=== PATIENT | female | born 1950 | race Caucasian/White ===

== ENCOUNTER 2016-10-26 00:19 | Emergency (ER) | payer OTHER ==
[~2016-10-26] VITALS: Ht 160 cm; Wt 99.8 kg
[~2016-10-26 00:19] MED LIST: ALPRAZOLAM0.5 MG PO; AMOXIL500 MG PO; ATORVASTATIN CA40 M1 PO; BABY ASPIRIN CH81 MG PO; BACTRIM DS 8001 TAB PO; DIOVAN 160 MG160 MG PO; FOLIC ACID1 M1 PO; GLUCOPHAGE1000 M1 PO; LEVOTHYROXIN0.075 MG PO; METOPROLOL SUCC50 M2 PO
--- NOTE | 2016-10-26 00:29 | ED CARDIAC/CP/PALPITATIONS ---
History of Present Illness General Chief Complaint: General Adult Stated Complaint: " BURNING IN CHEST TOWARDS BACK, HX ACID REFLUX" Source: patient, old records Exam Limitations: no limitations Vital Signs & Intake/Output Vital Signs & Intake/Output Vital Signs Date Time Temp Pulse Resp B/P Pulse O2 O2 Flow FiO2 Ox Delivery Rate 10/26 0057 97 Room Air Room Air 10/26 0031 97.0 92 20 147/85 95 Room Air Room Air Allergies Coded Allergies: Penicillins (Mild, RASH 08/14/16) ciprofloxacin (From CIPRO) (Mild, RASH 08/14/16) sulfamethoxazole (From BACTRIM) (Mild, NAUSEA, METAL TASTE 10/26/16) trimethoprim (From BACTRIM) (Mild, NAUSEA, METAL TASTE 10/26/16) Reconcile Medications Alprazolam 0.5 MG TAB 1 TAB PO BID ANXIETY (Reported) Amoxicillin (Amoxil) 500 MG CAP 1 CAP PO TID INFECTION Aspirin (Children's Aspirin) 81 MG TAB 1 TAB PO DAILY HEART HEALTH (Reported) Atorvastatin Calcium 40 MG TABLET 1 TAB PO DAILY HEART HEALTH (Reported) Folic Acid 1 MG TABLET 1 TAB PO DAILY HEALTH (Reported) Levothyroxine Sodium 0.075 MG TAB 1 TAB PO DAILY THYROID (Reported) Metformin HCl (Glucophage) 1,000 MG TABLET 1 TAB PO BID DM (Reported) Metoprolol Succinate 50 MG TAB.ER.24H 1 TAB PO DAILY HEART HEALTH (Reported) Sulfamethoxazole/Trimethopri (Bactrim Ds 800 MG-160 MG) 1 TAB TAB 1 TAB PO BID INFECTION Valsartan (Diovan) 160 MG TAB 2 TAB PO DAILY HTN (Reported) Triage Nurses Notes Reviewed? yes HPI: Patient presents with a burning sensation in her epigastric area that radiates to her chest and her back. The symptoms started a few weeks ago have been worsening. The burning sensation is worse when she is laying down. There are no mitigating factors. Patient denies any shortness of breath. Patient states that her anxiety is also getting worse. Patient denies any suicidal or homicidal ideations. The burning sensation is intermittent but last a few hours when she gets it. At its worse it is 6 out of 10. Of note patient states that the symptoms really started after taking a course of Bactrim. Past History Travel History Traveled to [place] past 21 day No Medical History Any Pertinent Medical History? 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 No Review of Systems Review of Systems Constitutional: Reports: no symptoms. EENTM: Reports: no symptoms. Respiratory: Reports: see HPI, cough. Cardiovascular: Reports: see HPI, chest pain. GI: Reports: see HPI, abdominal pain. Genitourinary: Reports: no symptoms. Musculoskeletal: Reports: no symptoms. Skin: Reports: no symptoms. Neurological/Psychological: Reports: no symptoms. Hematologic/Endocrine: Reports: no symptoms. Immunologic/Allergic: Reports: no symptoms. All Other Systems: Reviewed and Negative Physical Exam Physical Exam General Appearance: well developed/nourished, alert, awake, anxious, mild distress Head: atraumatic, normal appearance Eyes: Bilateral: PERRL, EOMI. Ears, Nose, Throat: normal pharynx, normal ENT inspection, hearing grossly normal Neck: normal inspection, supple, full range of motion, NO JVD Respiratory: normal breath sounds, chest non-tender, no respiratory distress, lungs clear Cardiovascular: normal peripheral pulses, REGULARLY IRREGULAR Gastrointestinal: normal bowel sounds, soft, non-tender, no organomegaly Back: normal inspection, normal range of motion Extremities: normal inspection, normal capillary refill, normal range of motion, no edema Neurologic/Psych: no motor/sensory deficits, awake, alert, oriented x 3, normal gait, normal mood/affect Skin: intact, normal color, warm/dry Lymphatic: no anterior cervical gonsalo Core Measures ACS in differential dx? Yes ASA ordered for poss ACS? No-ACS ruled out Severe Sepsis Present: No Septic Shock Present: No Progress Differential Diagnosis: AMI, atrial fibrillation, cholecystitis, myocarditis, pericarditis, pulmonary embolism, PUD/GERD Plan of Care: Orders Procedure Date/time Status Add-on Test (ER Only) 10/26 0609 Active TROPONIN LEVEL 10/26 0447 Complete EKG 10/26 0447 Active URINALYSIS 10/26 0104 Complete GLYCOSYLATED HGB 10/26 0052 Active TROPONIN LEVEL 10/26 0043 Complete LIPASE 10/26 0043 Complete COMPREHENSIVE METABOLIC PANEL 10/26 0043 Complete CBC WITHOUT DIFFERENTIAL 10/26 42 Complete AMYLASE 10/26 42 Complete EKG 10/26 38 Active Laboratory Tests 10/26/16 0502: Troponin I < 0.01 10/26/16 0125: Urinalysis LIGHT H, Urine Color STRAW, Urine Clarity CLEAR, Urine pH 7.0, Ur Specific [place] <= 1.005, Urine Protein NEG, Urine Ketones NEG, Urine Nitrite NEG, Urine Bilirubin NEG, Urine Urobilinogen 0.2, Ur Leukocyte Esterase SMALL H , Ur Microscopic SEDIMENT EXAMINED, Urine RBC 1-3, Urine WBC 1-3 H, Ur Epithelial Cells FEW, Urine Hemoglobin NEG, Urine Glucose NEG 10/26/16 0100: Hemoglobin A1c Pending 10/26/16 0100: Anion Gap 9, Estimated GFR > 60, BUN/Creatinine Ratio 33.3 H, Glucose 140 H, Calcium 10.5 H, Total Bilirubin 0.7, AST 66 H, ALT 76 H, Alkaline Phosphatase 167 H, Troponin I < 0.01, Total Protein 7.5, Albumin 4.2, Globulin 3.3, Albumin /Globulin Ratio 1.3, Amylase 59, Lipase 205, CBC w Diff NO MAN DIFF REQ, RBC 4.26, MCV 91.1, MCH 30.7, RDW 13.2, MPV 9.4, Gran % 46.2, Lymphocytes % 41.9, Monocytes % 8.0, Eosinophils % 3.2, Basophils % 0.7, Absolute Granulocytes 3.5, Absolute Lymphocytes 3.2, Absolute Monocytes 0.6, Absolute Eosinophils 0.2, Absolute Basophils 0.1, PUBS MCHC 33.7 Diagnostic Imaging: Viewed by Me: CT Scan. Discussed w/RAD: CT Scan. Radiology Impression: PATIENT: RON WEBSTER PRESENT AGE: 66 PATIENT ACCOUNT NO: [id number] : 49 LOCATION: [facility] ORDERING PHYSICIAN: SHASHI CAICEDO MD SERVICE DATE: 10/26/16 EXAM TYPE: CAT - CT ABD & PELVIS W IV CONTRAST EXAMINATION: CT ABDOMEN AND PELVIS WITH CONTRAST CLINICAL INFORMATION: Right upper quadrant pain. COMPARISON: None available. TECHNIQUE: Multidetector volumetric imaging was performed of the abdomen and pelvis before and after the IV administration of 92 mL of Optiray 320 intravenous contrast. Sagittal and coronal reformatted images were obtained on the technologist's workstation. FINDINGS: The lung bases are clear. Hepatic steatosis. Small calcified granuloma within the upper aspect of the liver. The spleen, adrenal glands, gallbladder, and pancreas are normal. The kidneys exhibit symmetric nephrograms without evidence of hydronephrosis or nephrolithiasis. No focal renal lesions. There is aortoiliac atherosclerotic calcification. There is a small hiatal hernia. Diffuse colonic diverticulosis without evidence of acute diverticulitis. The large and small bowel are normal in caliber without evidence of mechanical obstruction. No focal inflammatory changes adjacent to the large or the small bowel. The appendix is normal. There is no free air and there is no intra-abdominal free fluid. No mesenteric or retroperitoneal adenopathy. There is a 2 cm calcified fibroid within the uterus. No pelvic adenopathy. No free fluid within the pelvis. There are no acute osseous abnormalities. Bilateral L5 pars defects with grade 1 spondylolytic anterolisthesis of L5 on S1. No significant soft tissue abnormality. IMPRESSION: - No acute findings. The gallbladder is normal. - Diffuse colonic diverticulosis without evidence of acute diverticulitis. - Hepatic steatosis. - Small hiatal hernia. - Fibroid uterus. - Bilateral L5 pars defects with grade 1 spondylolytic anterolisthesis of L5 on S1. DICTATED BY: JESSEE HOLLAND MD DATE/TIME DICTATED: 10/26/16334 PROFESSOR OF SOCIOLOGY:ALTHEA DATE/TIME TRANSCRIBED:10/26/16334 CONFIDENTIAL, DO NOT COPY WITHOUT APPROPRIATE AUTHORIZATION. <Electronically signed in Other Vendor System> SIGNED BY: JESSEE HOLLAND MD 10/26/16 0351 Initial ED EKG: SINUS RHYTHM WITH NONSPECIFIC st-t CHANGES. Prior EKG: unchanged Repeat EKG: unchanged Rhythm Strip: normal sinus rhythm Comments: RELIEF OF BURNING PAIN POST GI COCTAIL. Departure Departure Disposition: HOME OR SELF CARE Condition: Stable Clinical Impression Primary Impression: Chest pain, unspecified Qualifiers: Chest pain type: other chest pain Qualified Code: R07.89 - Other chest pain Referrals: JONATHAN WILEY MD (PCP/Family) Additional Instructions: RETURN IF SYMPTOMS WORSEN OR FOR ANY CONCERNS Do not take your metformin until informed to resume by Dr. HOGUE. Departure Forms: Customer Survey General Discharge Information Critical Care Note Critical Care Note Critical Care Time: non-applicable
[2016-10-26 00:31] VITALS: BP 147/85
[2016-10-26 01:08] LABS: ABSOLUTE BASOPHIL COUNT 0.1 /CUMM (0.0-0.2); ABSOLUTE EOSINOPHIL COUNT 0.2 /CUMM (0.0-0.7); ABSOLUTE GRANULOCYTE CT 3.5 /CUMM (1.4-6.5); ABSOLUTE LYMPH COUNT 3.2 /CUMM (1.2-3.4); ABSOLUTE MONOCYTE COUNT 0.6 /CUMM (0.10-0.60); BASOPHIL % 0.7 % (0.0-2.0); EOSINOPHIL % 3.2 % (0-5); GRANULOCYTE % 46.2 % (42.2-75.2); HEMATOCRIT 38.8 % (37-47); MEAN CORPUSCULAR HGB 30.7 PG (27.0-31.0); MEAN CORPUSCULAR HGB CONC 33.7 G/DL (33.0-37.0); MEAN CORPUSCULAR VOLUME 91.1 FL (81.0-99.0); MEAN PLATELET VOLUME 9.4 FL (7.4-10.4); PLATELET COUNT 247 /CUMM (130-400); RBC DISTRIBUTION WIDTH 13.2 % (11.5-14.5); RED BLOOD CELL CT 4.26 /CUMM (4.20-5.40); WHITE BLOOD CELL COUNT 7.6 /CUMM (4.8-10.8)
--- NOTE | 2016-10-26 03:51 | CT SCAN REPORT ---
EXAMINATION: CT ABDOMEN AND PELVIS WITH CONTRAST CLINICAL INFORMATION: Right upper quadrant pain. COMPARISON: None available. TECHNIQUE: Multidetector volumetric imaging was performed of the abdomen and pelvis before and after the IV administration of 92 mL of Optiray 320 intravenous contrast. Sagittal and coronal reformatted images were obtained on the technologist's workstation. FINDINGS: The lung bases are clear. Hepatic steatosis. Small calcified granuloma within the upper aspect of the liver. The spleen, adrenal glands, gallbladder, and pancreas are normal. The kidneys exhibit symmetric nephrograms without evidence of hydronephrosis or nephrolithiasis. No focal renal lesions. There is aortoiliac atherosclerotic calcification. There is a small hiatal hernia. Diffuse colonic diverticulosis without evidence of acute diverticulitis. The large and small bowel are normal in caliber without evidence of mechanical obstruction. No focal inflammatory changes adjacent to the large or the small bowel. The appendix is normal. There is no free air and there is no intra-abdominal free fluid. No mesenteric or retroperitoneal adenopathy. There is a 2 cm calcified fibroid within the uterus. No pelvic adenopathy. No free fluid within the pelvis. There are no acute osseous abnormalities. Bilateral L5 pars defects with grade 1 spondylolytic anterolisthesis of L5 on S1. No significant soft tissue abnormality. IMPRESSION: - No acute findings. The gallbladder is normal. - Diffuse colonic diverticulosis without evidence of acute diverticulitis. - Hepatic steatosis. - Small hiatal hernia. - Fibroid uterus. - Bilateral L5 pars defects with grade 1 spondylolytic anterolisthesis of L5 on S1.
[2017-02-15] MEDS ORDERED: METOPROLOL TART50 M1 PO (17:16)
[2017-02-15] MEDS ORDERED: VALSARTAN-HCTZ1 EAC3 PO (17:16)
[2017-02-15] MEDS ORDERED: LOPRESSOR50 M1 PO (17:16)
[2017-02-15] MEDS ORDERED: LEVOTHYROXINE75 MCG PO (17:17)
[2017-02-15] MEDS ORDERED: COQ-10100 MG PO (17:17)
[2017-02-15] MEDS ORDERED: FOLIC ACID0.4 M1 PO (17:18)
[2017-02-15] MEDS ORDERED: VITAMIN E400 UNI4 PO (17:18)
[2017-02-15] MEDS ORDERED: MAGNESIUM500 M2 PO (17:19)
[2017-02-15] MEDS ORDERED: CENTRUM SILVER1 EAC3 PO (17:20)
[2017-02-15] MEDS ORDERED: PRESERVISION A1 EAC1 PO (17:20)
[2017-02-15] MEDS ORDERED: OMEGA-31000 M1 PO (17:20)
[2017-02-15] MEDS ORDERED: FISH OIL 1,0001 EAC4 PO (17:21)
[2017-02-15] MEDS ORDERED: ASPIRIN EC81 M1 PO (17:21)
[2017-02-15] MEDS ORDERED: CALTRATE 600 +1 EACH PO (17:22)
== END 2016-10-26 06:36 ==
LOC: ERH 00:19
PROVIDERS: Emergency Medicine
DX: R07.9 Chest pain, unspecified (principal)
CPT/HCPCS: 74177; 81001; 93005; 93010

== ENCOUNTER 2017-12-22 18:16 | Emergency (ER) | payer OTHER ==
[~2017-12-22] VITALS: Ht 160 cm; Wt 99.8 kg
[~2017-12-22 18:16] MED LIST changes: +ASPIRIN EC81 M1 PO; +CALTRATE 600 +1 EACH PO; +CENTRUM SILVER1 EAC3 PO; +COQ-10100 MG PO; +DOXYCYCLINE HY100 M4 PO; +FISH OIL 1,0001 EAC4 PO; +FOLIC ACID0.4 M1 PO; +LEVOTHYROXINE75 MCG PO; +LOPRESSOR50 M1 PO; +MAGNESIUM500 M2 PO; +METOPROLOL TART50 M1 PO; +OMEGA-31000 M1 PO; +PRESERVISION A1 EAC1 PO; +VALSARTAN-HCTZ1 EAC3 PO; +VITAMIN E400 UNI4 PO
--- NOTE | 2017-12-22 19:46 | RADIOLOGY REPORT ---
EXAMINATION: XR ELBOW, LEFT CLINICAL INFORMATION: Left elbow pain COMPARISON: None TECHNIQUE: AP, lateral, and oblique views of the left elbow. FINDINGS: The bones and soft tissues are normal. No fracture or joint effusion. Alignment is anatomic. Joint spaces are maintained. IMPRESSION: Normal left elbow.
--- NOTE | 2017-12-22 21:38 | ED GENERAL ADULT ---
History of Present Illness General Chief Complaint: Upper Extremity Problem Stated Complaint: SWOLLEN LEFT ELBOW Source: patient Exam Limitations: no limitations Vital Signs & Intake/Output Vital Signs & Intake/Output Vital Signs Date Time Temp Pulse Resp B/P B/P Pulse O2 O2 Flow FiO2 Mean Ox Delivery Rate 12/22 1840 96.9 102 15 143/86 94 Room Air Room Air Allergies Coded Allergies: Penicillins (Mild, RASH 12/22/17) ciprofloxacin (From CIPRO) (Mild, RASH 12/22/17) sulfamethoxazole (From BACTRIM) (Mild, NAUSEA, METAL TASTE 12/22/17) trimethoprim (From BACTRIM) (Mild, NAUSEA, METAL TASTE 12/22/17) Reconcile Medications Aspirin (Ecotrin*) 81 MG TABLET.DR 1 TAB PO DAILY HEART/BLOOD (Reported) Atorvastatin Calcium 40 MG TABLET 1 TAB PO DAILY HEART HEALTH (Reported) Calcium Carbonate/Vitamin D3 (Caltrate 600 + D Tablet) (Unknown Strength) TABLET (Unknown Dose) PO BID SUPPLEMENT (Reported) Doxycycline Hyclate 100 MG TABLET 1 TAB PO BID lyme Folic Acid 0.4 MG TABLET 1 TAB PO DAILY SUPPLEMENT (Reported) Levothyroxine Sodium 75 MCG TABLET 1 TAB PO DAILY THYROID (Reported) Magnesium Oxide (Magnesium) 500 MG CAPSULE 2 CAP PO DAILY SUPPLEMENT ( Reported) Metformin HCl (Glucophage) 1,000 MG TABLET 1 TAB PO BID DM (Reported) Metoprolol Tartrate 50 MG TABLET 1 TAB PO QAM BP (Reported) Metoprolol Tartrate (Lopressor) 50 MG TABLET 0.5 TAB PO QPM BP (Reported) Multivit-Min/FA/Lycopen/Lutein (Centrum Silver Tablet) 0.4 MG-300 MCG-250 MCG TABLET 1 CAP PO DAILY SUPPLEMENT (Reported) Suncook-3 Fatty Acids (Suncook-3) (Unknown Strength) CAPSULE (Unknown Dose) PO DAILY SUPPLEMENT (Reported) Suncook-3 Fatty Acids/Fish Oil (Fish Oil 1,000 MG Softgel) 300 MG-1,000 MG CAPSULE 1 CAP PO EOD SUPPLEMENT (Reported) Ubidecarenone (Coq-10) 100 MG CAPSULE 1 CAP PO DAILY SUPPLEMENT (Reported) Valsartan/Hydrochlorothiazide (Valsartan-Hctz 320-25 MG Tab) 320 MG-25 MG TABLET 1 TAB PO DAILY BP (Reported) Vit C/E/Zn/Coppr/Lutein/Zeaxan (Preservision Areds 2 Softgel) 250-200-40 CAPSULE 1 CAP PO BID SUPPLEMENT (Reported) Vitamin E Acetate (Vitamin E) 400 UNIT CAPSULE 1 CAP PO QPM SUPPLEMENT ( Reported) Triage Note: PT TO ED FOR C/C OF L ELBOW SWELLING WITHOUT TRAUMA. REPORTS SOME TENDERNESS. SLIGHT REDNESS NOTED ABOVE SWOLLEN AREA. Triage Nurses Notes Reviewed? yes Onset: Abrupt Duration: day(s): (2), constant, continues in ED Timing: single episode today Injury Environment: home Severity: mild, moderate Severity Numbers: 4 No Modifying Factors: none LMP (ages 10-50): post menopausal, unknown : No Patient currently breastfeeds: No HPI: 67-year-old female past medical history of hypertension, hyperlipidemia, anxiety and diabetes since her evaluation of swelling in her left elbow/antecubital area. Patient states she first noticed the swelling about 2 days ago. She reports very mild pain in the area that's worse with touching the area. She had no problems moving the elbow. She does note that before symptoms started she had been trying to open a heavy door. There's been no redness no discharge no numbness or tingling. No direct trauma to the area. She's not taking any medicine for pain. She does report that she has a appointment with her primary care doctor tomorrow for a recheck. (Blaze Mcgrath) Past History Travel History Traveled to [place] past 21 day No Medical History Any Pertinent Medical History? 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 No (Blaze Mcgrath) Review of Systems Review of Systems Constitutional: Reports: no symptoms. EENTM: Reports: no symptoms. Respiratory: Reports: no symptoms. Cardiovascular: Reports: no symptoms. GI: Reports: no symptoms. Genitourinary: Reports: no symptoms. Musculoskeletal: Reports: joint pain, joint swelling, muscle pain, muscle stiffness. Skin: Reports: no symptoms. Neurological/Psychological: Reports: no symptoms. Hematologic/Endocrine: Reports: no symptoms. Immunologic/Allergic: Reports: no symptoms. All Other Systems: Reviewed and Negative (Blaze Mcgrath) Physical Exam Physical Exam General Appearance: well developed/nourished, no apparent distress, alert, awake Head: atraumatic, normal appearance Eyes: Bilateral: normal appearance, EOMI. Ears, Nose, Throat: hearing grossly normal Neck: normal inspection, supple, full range of motion Respiratory: normal breath sounds, chest non-tender, no respiratory distress, lungs clear Cardiovascular: regular rate/rhythm, normal peripheral pulses Peripheral Pulses: 2+ radial (R), 2+ radial (L) Back: normal inspection, normal range of motion Extremities: there is an area of soft tissue swelling approximately 4cm by 3 cm over the left antecubital fossa. No focal fluctuant areas no erythema. The area is mildly tender to palpation. Full range of motion of the left elbow left wrist left shoulder is intact without pain. Neurovascular supply intact left upper extremity. Neurologic/Psych: no motor/sensory deficits, awake, alert, oriented x 3, normal gait Skin: intact, normal color, warm/dry Lymphatic: no anterior cervical gonsalo Core Measures ACS in differential dx? No CVA/TIA Diagnosis: No Sepsis Present: No Sepsis Focused Exam Completed? No (Blaze Mcgrath) Progress Differential Diagnoses I considered the following diagnoses in my evaluation of the patient: [ Tendinitis, osteoarthritis, abscess, biceps muscle rupture, ganglion cyst, cellulitis] Plan of Care: Patient seen and evaluated. She has an area of swelling to the left antecubital fossa. No signs of infection. She has full range of motion of the left elbow is intact. X-ray negative. Suspect musculoskeletal/soft tissue etiology. Neurovascular supply is intact. Patient be instructed rest ice elevation. Joe wrap applied. Follow-up with primary care doctor tomorrow. May need MRI/ ultrasound for further evaluation. Discussed return precautions in detail case discussed with Dr. Lundberg he agrees. Diagnostic Imaging: Viewed by Me: Radiology Read. Discussed w/RAD: Radiology Read. Radiology Impression: PATIENT: RON WEBSTER PRESENT AGE: 67 PATIENT ACCOUNT NO: [id number] : 49 LOCATION: [facility] ORDERING PHYSICIAN: Blaze FRANKLIN SERVICE DATE: 12/22/17 EXAM TYPE: RAD - XRY-ELBOW 3 OR MORE VIEWS, L EXAMINATION: XR ELBOW, LEFT CLINICAL INFORMATION: Left elbow pain COMPARISON: None TECHNIQUE: AP, lateral, and oblique views of the left elbow. FINDINGS: The bones and soft tissues are normal. No fracture or joint effusion. Alignment is anatomic. Joint spaces are maintained. IMPRESSION: Normal left elbow. DICTATED BY: Ian Moraes MD DATE/TIME DICTATED:1940 OIL EXPERT:ALTHEA DATE/TIME TRANSCRIBED:12/22/171940 CONFIDENTIAL, DO NOT COPY WITHOUT APPROPRIATE AUTHORIZATION. Initial ED EKG: none (Blaze Mcgrath) Departure Departure Disposition: HOME OR SELF CARE Condition: Stable Clinical Impression Primary Impression: Left elbow pain Referrals: Hazel GONZALES,David Zayas (PCP/Family) Additional Instructions: Follow-up with your primary care doctor tomorrow as scheduled. Continue Tylenol 1000 mg every 6 hours as needed for pain. Apply ice or 15-20 minutes every few hours rest avoid excessive bending and physical activity. Monitor symptoms if you notice spreading redness worsening swelling numbness tingling fevers or any other concerns return immediately. Departure Forms: Customer Survey General Discharge Information (Blaze Mcgrath) PA/LENS SHAPER GRINDER Co-Sign Statement Statement: ED Attending supervision documentation- [] I saw and evaluated the patient. I have also reviewed all the pertinent lab results and diagnostic results. I agree with the findings and the plan of care as documented in the PA's/LENS SHAPER GRINDER's documentation. [x] I have reviewed the ED Record and agree with the PA's/LENS SHAPER GRINDER's documentation. [] Additions or exceptions (if any) to the PAs/LENS SHAPER GRINDER's note and plan are summarized below: [] (Tamika GONZALES,Raul Barreto) Critical Care Note Critical Care Note Critical Care Time: non-applicable (Blaze Mcgrath)
[2017-12-22 22:15] VITALS: BP 136/84
== END 2017-12-22 22:22 ==
LOC: ERH 18:16
DX: M25.522 Pain in left elbow (principal)
CPT/HCPCS: 73080-LT

== ENCOUNTER 2018-03-05 17:01 | Emergency (ER) | payer OTHER ==
[~2018-03-05] VITALS: Ht 160 cm; Wt 99.8 kg
[2018-03-05 17:23] VITALS: BP 143/85
[2018-03-05] MEDS ORDERED: CLEOCIN HCL300 M1 PO (17:33)
--- NOTE | 2018-03-05 17:33 | ED SKIN/ALLERGY COMPLAINT ---
History of Present Illness General Chief Complaint: Animal/Insect Bite Stated Complaint: R FOOT SWELLING , BUG BITE Source: patient Exam Limitations: no limitations Vital Signs & Intake/Output Vital Signs & Intake/Output Vital Signs Date Time Temp Pulse Resp B/P B/P Pulse O2 O2 Flow FiO2 Mean Ox Delivery Rate 03/05 1723 98.0 97 18 143/85 98 Room Air ED Intake and Output 03/06 0000 03/05 1200 Intake Total Output Total Balance Patient 220 lb Weight Weight Reported by Patient Measurement Method Allergies Coded Allergies: Penicillins (Mild, RASH 12/22/17) ciprofloxacin (From CIPRO) (Mild, RASH 12/22/17) sulfamethoxazole (From BACTRIM) (Mild, NAUSEA, METAL TASTE 12/22/17) trimethoprim (From BACTRIM) (Mild, NAUSEA, METAL TASTE 12/22/17) Reconcile Medications Aspirin (Ecotrin*) 81 MG TABLET.DR 1 TAB PO DAILY HEART/BLOOD (Reported) Atorvastatin Calcium 40 MG TABLET 1 TAB PO DAILY HEART HEALTH (Reported) Calcium Carbonate/Vitamin D3 (Caltrate 600 + D Tablet) (Unknown Strength) TABLET (Unknown Dose) PO BID SUPPLEMENT (Reported) Clindamycin HCl (Cleocin HCl) 300 MG CAPSULE 1 CAP PO Q6H CELLULITIS Doxycycline Hyclate 100 MG TABLET 1 TAB PO BID lyme Folic Acid 0.4 MG TABLET 1 TAB PO DAILY SUPPLEMENT (Reported) Levothyroxine Sodium 75 MCG TABLET 1 TAB PO DAILY THYROID (Reported) Magnesium Oxide (Magnesium) 500 MG CAPSULE 2 CAP PO DAILY SUPPLEMENT ( Reported) Metformin HCl (Glucophage) 1,000 MG TABLET 1 TAB PO BID DM (Reported) Metoprolol Tartrate 50 MG TABLET 1 TAB PO QAM BP (Reported) Metoprolol Tartrate (Lopressor) 50 MG TABLET 0.5 TAB PO QPM BP (Reported) Multivit-Min/FA/Lycopen/Lutein (Centrum Silver Tablet) 0.4 MG-300 MCG-250 MCG TABLET 1 CAP PO DAILY SUPPLEMENT (Reported) [place]-3 Fatty Acids ([place]-3) (Unknown Strength) CAPSULE (Unknown Dose) PO DAILY SUPPLEMENT (Reported) [place]-3 Fatty Acids/Fish Oil (Fish Oil 1,000 MG Softgel) 300 MG-1,000 MG CAPSULE 1 CAP PO EOD SUPPLEMENT (Reported) Ubidecarenone (Coq-10) 100 MG CAPSULE 1 CAP PO DAILY SUPPLEMENT (Reported) Valsartan/Hydrochlorothiazide (Valsartan-Hctz 320-25 MG Tab) 320 MG-25 MG TABLET 1 TAB PO DAILY BP (Reported) Vit C/E/Zn/Coppr/Lutein/Zeaxan (Preservision Areds 2 Softgel) 250-200-40 CAPSULE 1 CAP PO BID SUPPLEMENT (Reported) Vitamin E Acetate (Vitamin E) 400 UNIT CAPSULE 1 CAP PO QPM SUPPLEMENT ( Reported) Triage Note: 68 Y/O FEMALE C/O RED RASH, ? BUG BITE TO TOP OF R FOOT; STATES SHE FELT THOUGH SHE GOT BIT TUESDAY NIGHT WHILE SITTING OUTSIDE ON [place]. AREA HAS BEEN PROGRESSIVELY MORE RED SINCE ONSET. RED SCALY RASK NOTED TO TOP OF FOOT. DENIES DRAINAGE. DENIES FEVERS. NO RED STREAKS NOTED. PT STATES SHE FEELS "WELL" OTHERWISE EVALD BY RIGOBERTO HURTADO IN TRIAGE Triage Nurses Notes Reviewed? yes Onset: Abrupt Duration: day(s): (2), constant, continues in ED Timing: single episode today Severity: mild, moderate Severity Numbers: 7 Location: feet Possible Factors: CELLULITIS LMP (ages 10-50): post menopausal : No Patient currently breastfeeds: No HPI: 68-year-old female history of hypertension and lipidemia non-insulin diabetes mellitus or evaluation of an area of erythema over the dorsum of her right foot. Patient reports she first noticed this about 2 days ago and has been persistent. Does not appear to be spreading but is not going away. The area is itchy and painful. She denies fevers. No calf swelling or pain. No discharge. She is concerned that she may been bitten by a bug. (Blaze Mcgrath) Past History Travel History Traveled to [place] past 21 day No Medical History Any Pertinent Medical History? see below for history Neurological: NONE EENT: NONE Cardiovascular: hypertension, hyperlipidemia Respiratory: NONE Gastrointestinal: NONE Hepatic: NONE Renal: NONE Musculoskeletal: NONE Psychiatric: anxiety Endocrine: diabetes Blood Disorders: NONE Cancer(s): NONE SECURITY SUPERVISOR/Reproductive: NONE Surgical History Surgical History: non-contributory Psychosocial History What is your primary language Lao Tobacco Use: Never used Family History Hx Contributory? No (Blaze Mcgrath) Review of Systems Review of Systems Constitutional: Reports: no symptoms. EENTM: Reports: no symptoms. Respiratory: Reports: no symptoms. Cardiovascular: Reports: no symptoms. GI: Reports: no symptoms. Genitourinary: Reports: no symptoms. Musculoskeletal: Reports: no symptoms. Skin: Reports: see HPI, erythema. Neurological/Psychological: Reports: no symptoms. Hematologic/Endocrine: Reports: no symptoms. Immunologic/Allergic: Reports: no symptoms. All Other Systems: Reviewed and Negative (Blaze Mcgrath) Physical Exam Physical Exam General Appearance: well developed/nourished, no apparent distress, alert, awake Head: atraumatic, normal appearance Eyes: Bilateral: normal appearance, EOMI. Ears, Nose, Throat: hearing grossly normal Neck: normal inspection, supple, full range of motion Respiratory: no respiratory distress Cardiovascular: normal peripheral pulses Peripheral Pulses: 2+ dorsalis pedis (R), 2+ dorsalis pedis (L) Back: normal inspection, normal range of motion, no vertebral tenderness Extremities: THERE IS A 3 CM X 3 CM AREA OF ERYTHEMA LOCATED OF THE DORSUM OF THE RIGHT FOOT. mILD SOFT TISSUE SWELLING NO INDURATION NO FOCAL FLUCTUANT AREAS. tHE AREA IS TENDER TO PALPATION. nEUROVASCULAR SUPPLY IS INTACT. pATIENT IS ABLE TO WALK AND BEAR WEIGHT. Neurologic/Psych: no motor/sensory deficits, awake, alert, oriented x 3, normal gait Skin: intact, normal color, warm/dry Skin Problem Location: lower extremities Skin Problem Character: CELLULITIS (Blaze Mcgrath) Progress Differential Diagnosis: abscess/cellulitis, allergic reaction, anaphylaxis, angioedema Plan of Care: Patient is here with an erythema over the dorsum of the right foot. The area is tender to palpation and hot. Suspect this may be cellulitis. Patient is afebrile. Her sugar is in the 200s. She is not an insulin-dependent diabetic. She is not currently on antibiotics. Patient will be treated with Clinda 300 mg every 6 hours. Patient has multiple antibiotics. A Rodríguez was made around the area of erythema tracks spread. Advised her to return in 2 days for a recheck. Discussed return precautions case discussed with Dr. MAE he agrees. (Blaze Mcgrath) Departure Departure Disposition: HOME OR SELF CARE Condition: Stable Clinical Impression Primary Impression: Cellulitis Qualifiers: Site of cellulitis: extremity Site of cellulitis of extremity: lower extremity Laterality: right Qualified Code: L03.115 - Cellulitis of right lower limb Referrals: David Oliva MD (PCP/Family) Additional Instructions: TAKE ANTIBIOTICS FOR FULL COURSE. KEEP THE FOOT ELEVATED. TYLENOL FOR PAIN. FOLLOW UP IN 2-3 DAYS FOR A RECHECK. RETURN SOOENR WITH SPREADING RENDESS, WORSENING SWELLING FEVER OR ANY OTHER CONCERNS. Departure Forms: Customer Survey General Discharge Information Prescriptions: Current Visit Scripts Clindamycin HCl (Cleocin HCl) 1 CAP PO Q6H #40 CAP (Blaze Mcgrath) PA/BENCH HAND MACHINE Co-Sign Statement Statement: ED Attending supervision documentation- x I saw and evaluated the patient. I have also reviewed all the pertinent lab results and diagnostic results. I agree with the findings and the plan of care as documented in the PA's/BENCH HAND MACHINE's documentation. [] I have reviewed the ED Record and agree with the PA's/BENCH HAND MACHINE's documentation. [] Additions or exceptions (if any) to the PAs/BENCH HAND MACHINE's note and plan are summarized below: [] (Joseph GONZALES,Manny)
== END 2018-03-05 17:43 ==
LOC: ERH 17:01
DX: L03.115 Cellulitis of right lower limb (principal)

== ENCOUNTER 2018-04-07 16:36 | Inpatient (IN) | payer OTHER ==
[~2018-04-07] VITALS: Ht 160 cm; Wt 103.4 kg
[~2018-04-07 16:36] MED LIST changes: +CLEOCIN HCL300 M1 PO
--- NOTE | 2018-04-07 17:02 | ED MVC/FALL/TRAUMA COMPLAINT ---
History of Present Illness General Chief Complaint: Fall Stated Complaint: FALL Source: patient, family, old records Exam Limitations: no limitations Vital Signs & Intake/Output Vital Signs & Intake/Output Vital Signs Date Time Temp Pulse Resp B/P B/P Pulse O2 O2 Flow FiO2 Mean Ox Delivery Rate 04/07 2201 98.1 84 18 143/81 98 Room Air 04/07 1908 97.4 79 18 119/70 96 Room Air 04/07 1645 97.9 82 18 153/63 98 Room Air 04/07 1642 98 Allergies Coded Allergies: Penicillins (Mild, RASH 12/22/17) ciprofloxacin (From CIPRO) (Mild, RASH 12/22/17) sulfamethoxazole (From BACTRIM) (Mild, NAUSEA, METAL TASTE 12/22/17) trimethoprim (From BACTRIM) (Mild, NAUSEA, METAL TASTE 12/22/17) Reconcile Medications Aspirin (Ecotrin*) 81 MG TABLET.DR 1 TAB PO DAILY HEART/BLOOD (Reported) Atorvastatin Calcium 40 MG TABLET 1 TAB PO DAILY HEART HEALTH (Reported) Calcium Carbonate/Vitamin D3 (Caltrate 600 + D Tablet) (Unknown Strength) TABLET (Unknown Dose) PO BID SUPPLEMENT (Reported) Clindamycin HCl (Cleocin HCl) 300 MG CAPSULE 1 CAP PO Q6H CELLULITIS Doxycycline Hyclate 100 MG TABLET 1 TAB PO BID lyme Folic Acid 0.4 MG TABLET 1 TAB PO DAILY SUPPLEMENT (Reported) Hydrocodone/Acetaminophen (Vicodin 5-300 MG Tablet) 5 MG-300 MG TABLET 1 TAB PO Q6P PRN PAIN Levothyroxine Sodium 75 MCG TABLET 1 TAB PO DAILY THYROID (Reported) Magnesium Oxide (Magnesium) 500 MG CAPSULE 2 CAP PO DAILY SUPPLEMENT ( Reported) Metformin HCl (Glucophage) 1,000 MG TABLET 1 TAB PO BID DM (Reported) Metoprolol Tartrate 50 MG TABLET 1 TAB PO QAM BP (Reported) Metoprolol Tartrate (Lopressor) 50 MG TABLET 0.5 TAB PO QPM BP (Reported) Multivit-Min/FA/Lycopen/Lutein (Centrum Silver Tablet) 0.4 MG-300 MCG-250 MCG TABLET 1 CAP PO DAILY SUPPLEMENT (Reported) [place]-3 Fatty Acids ([place]-3) (Unknown Strength) CAPSULE (Unknown Dose) PO DAILY SUPPLEMENT (Reported) [place]-3 Fatty Acids/Fish Oil (Fish Oil 1,000 MG Softgel) 300 MG-1,000 MG CAPSULE 1 CAP PO EOD SUPPLEMENT (Reported) Ubidecarenone (Coq-10) 100 MG CAPSULE 1 CAP PO DAILY SUPPLEMENT (Reported) Valsartan/Hydrochlorothiazide (Valsartan-Hctz 320-25 MG Tab) 320 MG-25 MG TABLET 1 TAB PO DAILY BP (Reported) Vit C/E/Zn/Coppr/Lutein/Zeaxan (Preservision Areds 2 Softgel) 250-200-40 CAPSULE 1 CAP PO BID SUPPLEMENT (Reported) Vitamin E Acetate (Vitamin E) 400 UNIT CAPSULE 1 CAP PO QPM SUPPLEMENT ( Reported) Triage Note: PT BIBA FROM HOME AFTER SHE SLIPPED WHILE WALKING ON HER TREADMILL. PT WAS AT LOW SPEED WHEN SHE TRIED TO STEP OFF TREADMILL AND SHE SLIPPED LANDING ON HER HANDS AND INJURING BILAT SHOULDERS C/O PAIN IN BOTH SHOULDERS. Triage Nurses Notes Reviewed? yes HPI: Patient was walking when she tripped and had a mechanical fall and fell floor and caught herself on her outstretched hands. Patient felt a pop sensation is both of her shoulders. Patient states that since then she can't raise her arms. The pain is throbbing and aching in nature. The pain increases with attempted movement. There is no radiation. The pain is 8 out of 10. She denies any head injury. There is no headache. No blurred vision. No nausea or vomiting. No weakness or numbness (Maximiliano GONZALES,Alex Mcdermott) Past History Travel History Traveled to [place] past 21 day No Medical History Any Pertinent Medical History? 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 No (Maximiliano GONZALES,Alex Mcdermott) Review of Systems Review of Systems Constitutional: Reports: no symptoms. Eyes: Reports: no symptoms. Ears, Nose, Throat, Mouth: Reports: no symptoms. Respiratory: Reports: no symptoms. Cardiovascular: Reports: no symptoms. Musculoskeletal: Reports: see HPI, joint pain. Neurological/Psychological: Reports: no symptoms. (Maximiliano GONZALES,Alex Mcdermott) Physical Exam Physical Exam General Appearance: well developed/nourished, alert, awake, anxious, moderate distress Head: atraumatic, normal appearance Eyes: Bilateral: PERRL, EOMI. Ears, Nose, Throat, Mouth: hearing grossly normal, moist mucous membrane Neck: normal inspection, supple, full range of motion, no midline tenderness Respiratory: normal breath sounds, chest non-tender, no respiratory distress, lungs clear Cardiovascular: regular rate/rhythm, normal peripheral pulses Gastrointestinal: normal bowel sounds, soft, non-tender, no organomegaly Back: normal inspection, normal range of motion, no vertebral tenderness Extremities: injury present, pain with movement Neurologic/Psych: no motor/sensory deficits, awake, alert, oriented x 3, normal gait, normal mood/affect Core Measures ACS in differential dx? No CVA/TIA Diagnosis No Sepsis Present: No Sepsis Focused Exam Completed? No (Maximiliano GONZALES,Alex Mcdermott) Progress Differential Diagnosis: ext injury Plan of Care: Orders Procedure Date/time Status Heart Healthy Diet 04/08 B Active ED Holding Orders 04/07 235 Active Admit to inpatient 04/07 2358 Active Vital Signs 04/07 2358 Active Code Status 04/07 2358 Active TROPONIN LEVEL 04/07 220 Complete COMPREHENSIVE METABOLIC PANEL 04/07 220 Complete CBC WITHOUT DIFFERENTIAL 04/07 2206 Complete EKG 04/07 220 Active Durable Medical Equipment 04/07 1852 Active Current Medications Sig/Veda Start time Last Medication Dose Stop Time Status Admin Morphine Sulfate 4 MG ONCE ONE 04/07 2345 UNVr (MORPHINE SULFATE) 04/07 2346 Sodium Chloride 1,000 ML ONCE ONE 04/07 2215 AC 04/07 (Normal Saline 0.9%) 04/08 0454 2327 Laboratory Tests 04/07/18 2220: Anion Gap 11, Estimated GFR > 60, BUN/Creatinine Ratio 52.5 H, Glucose 189 H, Calcium 9.2, Total Bilirubin 0.9, AST 50 H, ALT 51, Alkaline Phosphatase 108, Troponin I < 0.01, Total Protein 7.4, Albumin 4.2, Globulin 3.2, Albumin/ Globulin Ratio 1.3, CBC w Diff NO MAN DIFF REQ, RBC 3.89 L, MCV 92.9, MCH 30.9, MCHC 33.3, RDW 13.0, MPV 9.3, Gran % 88.9 H, Lymphocytes % 7.4 L, Monocytes % 3.5, Eosinophils % 0, Basophils % 0.2, Absolute Granulocytes 12.1 H, Absolute Lymphocytes 1.0 L, Absolute Monocytes 0.5, Absolute Eosinophils 0, Absolute Basophils 0 Diagnostic Imaging: Viewed by Me: Radiology Read. Discussed w/RAD: Radiology Read. Radiology Impression: PATIENT: RON WEBSTER PRESENT AGE: 68 PATIENT ACCOUNT NO: [id number] : 49 LOCATION: ER ORDERING PHYSICIAN: Alex Viera MD SERVICE DATE: 04/07/18 EXAM TYPE: RAD - XRY-SHOULDER COMPLETE-RIGHT EXAMINATION: XR SHOULDER, RIGHT CLINICAL INFORMATION: Status post fall. Pain. COMPARISON: Left shoulder radiographs of . TECHNIQUE: AP external rotation, Grashey, scapular Y, and axillary views of the right shoulder. FINDINGS: The appearance of the greater tuberosity is somewhat similar to that seen on the left side and nondisplaced fracture through the greater tuberosity cannot be completely excluded. Correlate with history of prior trauma in this region. And acromioclavicular joint alignments are normal. IMPRESSION: Question acute nondisplaced fracture versus chronic deformity through the left greater tuberosity. Recommend clinical correlation. DICTATED BY: Opal Finney MD DATE/TIME DICTATED:04/07/181818 BODY MAKER MACHINE SETTER: ALTHEA DATE/TIME TRANSCRIBED:04/07/181818 CONFIDENTIAL, DO NOT COPY WITHOUT APPROPRIATE AUTHORIZATION. <Electronically signed in Other Vendor System> SIGNED BY: Opal Finney MD 04/07/18 1830, PATIENT: RON WEBSTER PRESENT AGE: 68 PATIENT ACCOUNT NO: [id number] : 49 LOCATION: [facility] ORDERING PHYSICIAN: Alex Viera MD SERVICE DATE: 04/07/18 EXAM TYPE: RAD - XRY-SHOULDER COMPLETE-LEFT EXAMINATION: XR SHOULDER, LEFT CLINICAL INFORMATION: Status post fall. Left shoulder pain. COMPARISON: None TECHNIQUE: 3 views of the left shoulder were obtained. FINDINGS: The evaluation is somewhat limited by patient positioning. Fracture through the greater tuberosity is suspected with evolution of small fragment on the lateral aspect. Acromioclavicular and glenohumeral joint alignments are normal. Degenerative changes are noted at the acromioclavicular joints. Visualized left hemithorax is unremarkable. IMPRESSION: Limited evaluation by patient positioning Suspected fracture through the left humeral greater tuberosity. DICTATED BY: Opal Finney MD DATE/TIME DICTATED:04/07/181814 BODY MAKER MACHINE SETTER:ALTHEA DATE/TIME TRANSCRIBED:04/07/181814 CONFIDENTIAL, DO NOT COPY WITHOUT APPROPRIATE AUTHORIZATION. <Electronically signed in Other Vendor System> SIGNED BY: Opal Finney MD 04/07/181821 Hand-Off Endorsed To: Claude Shane DO Endorsed Time: 1941 Pending: consult (Maximiliano GONZALSE,Alex Mcdermott) Departure Departure Disposition: HOME OR SELF CARE Condition: Stable Clinical Impression Primary Impression: Humeral fracture Referrals: Che GONZALES,Zhen Oliva MD,David Zayas (PCP/Family) Additional Instructions: TAKE VICODIN NEEDED FOR PAIN USE SLING FOLLOW UP WITH DR. BATES RETURN IF SYMPTOMS WORSEN OR FOR ANY CONCERNS Departure Forms: Customer Survey General Discharge Information Prescriptions: Current Visit Scripts Hydrocodone/Acetaminophen (Vicodin 5-300 MG Tablet) 1 TAB PO Q6P PRN PAIN #20 TAB (Maximiliano GONZALES,Alex Mcdermott) Admission Note Spoke With: Harsh Ireland MD Documentation of Exam: Documentation of any treatments & extenuating circumstances including Concerns Regarding Discharge (functional status, medication knowledge or non-compliance, living conditions, etc.) that warrant an admission rather than observation: [The patient needs admission for IV pain medication, PT, rehabilitation facility placement] The patient was signed out to me by Dr. Viera at 7 PM (Claude Shane DO)
--- NOTE | 2018-04-07 18:22 | RADIOLOGY REPORT ---
EXAMINATION: XR SHOULDER, LEFT CLINICAL INFORMATION: Status post fall. Left shoulder pain. COMPARISON: None TECHNIQUE: 3 views of the left shoulder were obtained. FINDINGS: The evaluation is somewhat limited by patient positioning. Fracture through the greater tuberosity is suspected with evolution of small fragment on the lateral aspect. Acromioclavicular and glenohumeral joint alignments are normal. Degenerative changes are noted at the acromioclavicular joints. Visualized left hemithorax is unremarkable. IMPRESSION: Limited evaluation by patient positioning Suspected fracture through the left humeral greater tuberosity.
--- NOTE | 2018-04-07 18:30 | RADIOLOGY REPORT ---
EXAMINATION: XR SHOULDER, RIGHT CLINICAL INFORMATION: Status post fall. Pain. COMPARISON: Left shoulder radiographs of 04/07/2018. TECHNIQUE: AP external rotation, Grashey, scapular Y, and axillary views of the right shoulder. FINDINGS: The appearance of the greater tuberosity is somewhat similar to that seen on the left side and nondisplaced fracture through the greater tuberosity cannot be completely excluded. Correlate with history of prior trauma in this region. And acromioclavicular joint alignments are normal. IMPRESSION: Question acute nondisplaced fracture versus chronic deformity through the left greater tuberosity. Recommend clinical correlation.
[2018-04-07] MEDS ORDERED: VICODIN 5-3001 EACH PO (18:54)
[2018-04-07 22:26] LABS: ABSOLUTE BASOPHIL COUNT 0 /CUMM (0.0-0.2); ABSOLUTE EOSINOPHIL COUNT 0 /CUMM (0.0-0.7); ABSOLUTE GRANULOCYTE CT 12.1 /CUMM (1.4-6.5); ABSOLUTE MONOCYTE COUNT 0.5 /CUMM (0.10-0.60); BASOPHIL % 0.2 % (0.0-2.0); EOSINOPHIL % 0 % (0-5); GRANULOCYTE % 88.9 % (42.2-75.2); HEMATOCRIT 36.1 % (37-47); MEAN CORPUSCULAR HGB 30.9 PG (27.0-31.0); MEAN CORPUSCULAR HGB CONC 33.3 G/DL (33.0-37.0); MEAN CORPUSCULAR VOLUME 92.9 FL (81.0-99.0); MEAN PLATELET VOLUME 9.3 FL (7.4-10.4); PLATELET COUNT 213 /CUMM (130-400); RED BLOOD CELL CT 3.89 /CUMM (4.20-5.40); WHITE BLOOD CELL COUNT 13.6 /CUMM (4.8-10.8)
--- NOTE | 2018-04-07 23:22 | RADIOLOGY REPORT ---
EXAMINATION: XR CHEST CLINICAL INFORMATION: Fall with chest wall pain COMPARISON: 10/21/2010. Shoulder radiographs from today. TECHNIQUE: 2 views of the chest were obtained. FINDINGS: The lateral views are suboptimal. Lung volumes are low. No consolidation, edema, or effusion. No pneumothorax. The cardiomediastinal silhouette is unchanged from previous. The osseous structures are not well evaluated on this study. Mild irregularity of the right humeral neck, consistent with a nondisplaced fracture. IMPRESSION: Limited study. Low lung volumes with no acute pulmonary finding. The osseous structures are not well evaluated on this study. Nondisplaced right humeral neck fracture again noted.
--- NOTE | 2018-04-08 00:28 | History & Physical ---
Nima Parks 04/08/18 0027: General Information and HPI MD Statement: I have seen and personally examined DARINRON HSU and documented this H&P. The patient is a 68 year old F who presented with a patient stated chief complaint of [falling and bilateral humeral fracture]. Source of Information: patient, family Exam Limitations: Limited physical activity due to bilat humoral fracture History of Present Illness: The patient is a 68-year-old lady with past medical history significant for diabetes mellitus, possible TIA, hypothyroidism, hypertension, right lower extremity cellulitis who presented to ED with chief complaint of falling down and pain in her shoulders. She was using the treadmill earlier today, she did not turn it off and try to get off the treadmill, she tripped and fell on the floor on her palms, then she heard a crack, and then was on the floor on her chest. At that time her was in the backyard watering plants, and her friend lives upstairs. She managed to move a little bit to make it possible for her friend to hear her. After half an hour her friend came downstairs and then she was brought in to the ED. After the event she experienced numbness and tingling in both her hands, first right side numbness and tingling resolved and later left side was resolved. She is states that the pain was 10 out of 10 at first and it was stabbing pain, now she is states that the pain is 5 out of 10 and she is states that it is not stabbing, but it is tender. She remembers all the details of the events, and she has states that she did not lose of consciousness, did not hit her head, did not have lightheadedness, dizziness, vertigo, chest pain, chest pressure, chest tightness, change in vision, weakness, tingling or numbness, headache, or nausea and vomiting prior to the event. She denies any seizure or seizure-like movements, blackouts, low blood sugars. She is states that last month she had a bug bite which resulted into cellulitis for which she was treated with antibiotics. Past medical history: Diabetes mellitus, hypertension, hypothyroidism, right lower extremity cellulitis 1 month ago, possible TIA in 2016, Surgical history: Left-sided vein closure surgery, , left upper extremity finger surgery Family history: She has states that both her parents are , her father had heart disease and her mother had interstitial lung disease, diabetes mellitus, and Alzheimer's disease. Social history: She denies smoking, drinking alcohol, or any use of recreational drugs. Allergies: She is allergic to penicillin and ciprofloxacin, these 2 medications cause mild for rash. She is also allergic to trimethoprim and sulfamethoxazole (Bactrim) which causes GI upset, mild nausea, and metallic taste. Imaging: X-ray has shown bilateral humeral fracture with no displacement, and no rib fractures. Allergies/Medications Allergies: Coded Allergies: Penicillins (Mild, RASH 12/22/17) ciprofloxacin (From CIPRO) (Mild, RASH 12/22/17) sulfamethoxazole (From BACTRIM) (Mild, NAUSEA, METAL TASTE 12/22/17) trimethoprim (From BACTRIM) (Mild, NAUSEA, METAL TASTE 12/22/17) Compliance With Home Meds: GOOD Past History Travel History Traveled to [place] past 21 day No Medical History Neurological: NONE EENT: NONE Cardiovascular: hypertension, hyperlipidemia Respiratory: NONE Gastrointestinal: NONE Hepatic: NONE Renal: NONE Musculoskeletal: NONE Psychiatric: anxiety Endocrine: diabetes Blood Disorders: NONE Cancer(s): NONE 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 EENTM: Reports: see HPI. Cardiovascular: Reports: see HPI. Respiratory: Reports: see HPI. GI: Reports: see HPI. Genitourinary: Reports: see HPI. Musculoskeletal: Reports: see HPI. Skin: Reports: see HPI. Neurological/Psychological: Reports: see HPI. Hematologic/Endocrine: Reports: see HPI. Immunologic/Allergic: Reports: see HPI. Exam & Diagnostic Data Last 24 Hrs of Vital Signs/I&O Vital Signs Date Time Temp Pulse Resp B/P B/P Pulse O2 O2 Flow FiO2 Mean Ox Delivery Rate 04/08 0255 98.0 82 20 119/69 96 Room Air 04/08 0050 98.6 86 18 134/80 97 Room Air 04/07 2201 98.1 84 18 143/81 98 Room Air 04/07 1908 97.4 79 18 119/70 96 Room Air 04/07 1645 97.9 82 18 153/63 98 Room Air 04/07 1642 98 Intake & Output 04/08 0800 04/08 0000 04/07 1600 Intake Total 0 Output Total Balance 0 Intake, Oral 0 Patient 220 lb Weight Weight Reported by Patient Measurement Method Physical Exam General Appearance Alert, Oriented X3, Cooperative, No Acute Distress Skin No Rashes Skin Temp/Moisture Exam: Warm/Dry Sepsis Skin Exam (color): Normal for Ethnicity HEENT Atraumatic, PERRLA, EOMI, Mucous Membr. moist/pink Neck Supple, No JVD Cardiovascular Regular Rate, Normal S1, Normal S2 Lungs Clear to Auscultation, Normal Air Movement Abdomen Normal Bowel Sounds, Soft, No Tenderness, No Hepatospenomegaly, No Masses Neurological Normal Speech, Strength at 5/5 X4 Ext, Normal Tone, Sensation Intact Extremities No Clubbing, No Cyanosis, No Edema, Normal Pulses, Bilateral upper extremities in sling due to bilateral humeral fracture. Normal pulses, normal sensation, normal movement in fingers bilaterally. Limited ROM in elbow and shoulder bilaterally due to pain ., LE varicose veins Vascular Normal Pulses, Pulses Symmetrical Sepsis Peripheral Pulse Location: Dorsalis Pedis Sepsis Peripheral Pulse Exam: Normal Sepsis Cap Refill Exam: <2 Sec Assessment/Plan Assessment: The patient is a 68-year-old female with past medical history significant for diabetes mellitus, hypertension, right lower extremity cellulitis who came to ED with bilateral humeral fracture due to falling down. Based on the findings and physical examination and interview, the patient does not have any sensory impairments or arterial compromise in bilateral upper extremities. She did not have any underlying medical disorder to have caused the fall. We are going to consult orthopedic surgeon for bilateral humeral fracture. Since the fracture is not displaced, most probably they are not going to do surgical intervention. The patient is admitted to general medicine floor, pain will be managed with morphine, and Tylenol. We will place orthopedic surgery consult patient. She is a full code patient. Problem list: Bilateral humeral fracture Hypertension Hypothyroidism Diabetes mellitus History of cellulitis History of possible TIA As Ranked By This Provider Problem List: 1. Humeral fracture 2. HTN (hypertension) 3. Diabetes mellitus 4. Hypothyroidism 5. Varicose veins of lower extremities Core Measures/Misc (05/15) Acute Coronary Syndrome ACS Diagnosis: No Congestive Heart Failure Congestive Heart Failure Diagnosis No Cerebrovascular Accident CVA/TIA Diagnosis: No VTE (View Protocol) VTE Risk Factors Age>40 No Mechanical V[facility] Pharm Prophylaxis d/t NA PharmProphylax ordered Sepsis (View protocol) Sepsis Present: No If YES complete Sepsis Event Note If YES complete Sepsis Event Note Harsh Ireland MD 04/08/18 0547: General Information and HPI MD Statement: I have seen and personally examined RON WEBSTER and documented this H&P. The patient is a 68 year old F who presented with a patient stated chief complaint of [status post fall]. Source of Information: patient, family Allergies/Medications Home Med list Aspirin (Ecotrin*) 81 MG TABLET.DR 1 TAB PO DAILY HEART/BLOOD (Reported) Atorvastatin Calcium 40 MG TABLET 1 TAB PO DAILY HEART HEALTH (Reported) Calcium Carbonate/Vitamin D3 (Caltrate 600 + D Tablet) (Unknown Strength) TABLET (Unknown Dose) PO BID SUPPLEMENT (Reported) Clindamycin HCl (Cleocin HCl) 300 MG CAPSULE 1 CAP PO Q6H CELLULITIS Doxycycline Hyclate 100 MG TABLET 1 TAB PO BID lyme Folic Acid 0.4 MG TABLET 1 TAB PO DAILY SUPPLEMENT (Reported) Hydrocodone/Acetaminophen (Vicodin 5-300 MG Tablet) 5 MG-300 MG TABLET 1 TAB PO Q6P PRN PAIN Levothyroxine Sodium 75 MCG TABLET 1 TAB PO DAILY THYROID (Reported) Magnesium Oxide (Magnesium) 500 MG CAPSULE 2 CAP PO DAILY SUPPLEMENT ( Reported) Metformin HCl (Glucophage) 1,000 MG TABLET 1 TAB PO BID DM (Reported) Metoprolol Tartrate 50 MG TABLET 1 TAB PO QAM BP (Reported) Metoprolol Tartrate (Lopressor) 50 MG TABLET 0.5 TAB PO QPM BP (Reported) Multivit-Min/FA/Lycopen/Lutein (Centrum Silver Tablet) 0.4 MG-300 MCG-250 MCG TABLET 1 CAP PO DAILY SUPPLEMENT (Reported) [place]-3 Fatty Acids ([place]-3) (Unknown Strength) CAPSULE (Unknown Dose) PO DAILY SUPPLEMENT (Reported) [place]-3 Fatty Acids/Fish Oil (Fish Oil 1,000 MG Softgel) 300 MG-1,000 MG CAPSULE 1 CAP PO EOD SUPPLEMENT (Reported) Ubidecarenone (Coq-10) 100 MG CAPSULE 1 CAP PO DAILY SUPPLEMENT (Reported) Valsartan/Hydrochlorothiazide (Valsartan-Hctz 320-25 MG Tab) 320 MG-25 MG TABLET 1 TAB PO DAILY BP (Reported) Vit C/E/Zn/Coppr/Lutein/Zeaxan (Preservision Areds 2 Softgel) 250-200-40 CAPSULE 1 CAP PO BID SUPPLEMENT (Reported) Vitamin E Acetate (Vitamin E) 400 UNIT CAPSULE 1 CAP PO QPM SUPPLEMENT ( Reported) Past History Medical History Cardiovascular: hypertension, hyperlipidemia Psychiatric: anxiety Endocrine: diabetes Past Family/Social History Psychosocial History Smoking Status: Never Smoked ETOH Use: denies use Illicit Drug Use: denies illicit drug use Review of Systems Review of Systems Constitutional: Reports: see HPI. Exam & Diagnostic Data Last 24 Hrs of Vital Signs/I&O Vital Signs Date Time Temp Pulse Resp B/P B/P Pulse O2 O2 Flow FiO2 Mean Ox Delivery Rate 04/08 0255 98.0 82 20 119/69 96 Room Air 04/08 0050 98.6 86 18 134/80 97 Room Air 04/07 2201 98.1 84 18 143/81 98 Room Air 04/07 1908 97.4 79 18 119/70 96 Room Air 04/07 1645 97.9 82 18 153/63 98 Room Air 04/07 1642 98 Intake & Output 04/08 0800 04/08 0000 04/07 1600 Intake Total 0 Output Total Balance 0 Intake, Oral 0 Patient 228 lb 220 lb Weight Weight Bed scale Reported by Patient Measurement Method Physical Exam General Appearance Alert, Oriented X3, Cooperative, No Acute Distress Skin No Rashes, No Breakdown Skin Temp/Moisture Exam: Cool/Dry Sepsis Skin Exam (color): Normal for Ethnicity HEENT Atraumatic, PERRLA, EOMI, Mucous Membr. moist/pink Neck Supple, No JVD Lymphatic Axillary nl, Cervical nl Cardiovascular Regular Rate, Normal S1, Normal S2 Lungs Clear to Auscultation, Normal Air Movement Abdomen Normal Bowel Sounds, Soft, No Tenderness, No Hepatospenomegaly, No Masses Neurological Normal Gait, Normal Speech Extremities No Clubbing, No Cyanosis, No Edema, Bilateral upper extremities in sling due to bilateral humeral fracture. Normal pulses, normal sensation, normal movement in fingers bilaterally. Limited ROM in elbow and shoulder bilaterally due to pain . Vascular Normal Pulses, Pulses Symmetrical Sepsis Peripheral Pulse Location: Dorsalis Pedis Sepsis Peripheral Pulse Exam: Normal Sepsis Cap Refill Exam: <2 Sec Last 24 Hrs of Labs/Simeon: Laboratory Tests 04/07/18 2220: Anion Gap 11, Estimated GFR > 60, BUN/Creatinine Ratio 52.5 H, Glucose 189 H, Calcium 9.2, Total Bilirubin 0.9, AST 50 H, ALT 51, Alkaline Phosphatase 108, Troponin I < 0.01, Total Protein 7.4, Albumin 4.2, Globulin 3.2, Albumin/ Globulin Ratio 1.3, CBC w Diff NO MAN DIFF REQ, RBC 3.89 L, MCV 92.9, MCH 30.9, MCHC 33.3, RDW 13.0, MPV 9.3, Gran % 88.9 H, Lymphocytes % 7.4 L, Monocytes % 3.5, Eosinophils % 0, Basophils % 0.2, Absolute Granulocytes 12.1 H, Absolute Lymphocytes 1.0 L, Absolute Monocytes 0.5, Absolute Eosinophils 0, Absolute Basophils 0 Core Measures/Misc (05/15) Sepsis (View protocol) If YES complete Sepsis Event Note If YES complete Sepsis Event Note Attending MD Review Statement Attending Statement Attending MD Statement: examined this patient, discuss w/resident/PA/JOINT CLEANING MACHINE OPERATOR, agreed w/resident/PA/JOINT CLEANING MACHINE OPERATOR, amended to note Attending Assessment/Plan: The patient is a 68-year-old female with a significant past medical history for diabetes mellitus, TIA, hypothyroidism, hypertension, right lower extremity cellulitis who presented to ED with chief complaint of falling down and pain in her shoulders. She was using her treadmill and fell and landed on her chest. She remained on the floor for a half an hour when her friend came downstairs and brought her to [place]. While in the ED she was found to have a leukocytosis at 13.6, Hyponatremia 131, and X-rays showed bilateral humeral fracture with no displacement, and no rib fractures. Orthopedic surgery was contacted. The patient was admitted to General Medicine for pain control secondary to b/l humerus factures. Ortho to follow with PT/OT since ADLS are going to be difficult with 2 broken arms. Full Code. Chester Larson MD 04/08/18 0934: Core Measures/Misc (05/15) Sepsis (View protocol) If YES complete Sepsis Event Note If YES complete Sepsis Event Note Resident Review Statement Other Findings: Patient is a 68-year-old female with past medical history of diabetes,? TIA, hypothyroidism, hypertension, hyperlipidemia, right lower extremity cellulitis presenting this admission after sustaining a fall on outstretched hands. Patient reports that on the day of admission she was using her treadmill and did not show it off prior to attempting to exit and fell face forward with her hands bracing a large portion of her impact. Patient reports that she felt her shoulders go back and heard a loud popping sound. States that she did hit her abdomen. Denies any head trauma or loss of consciousness. Prior to the fall she denies any feeling of lightheadedness, dizziness, warmth, chest pain, palpitations, seizure-like activity. Patient reports that she tried to pull herself off the treadmill and it took approximately 30 minutes for her to receive help. Patient reports pain with movement of both arms. In the ED patient had x-rays which showed bilateral humeral fractures. Ortho was consulted and patient was splinted. Patient received Tylenol with codeine, Vicodin, Toradol, 1 L normal saline, morphine with some relief. On admission: Vital signs stable. On physical exam patient resting comfortably in bed with sling in place, neuro exam performed except limited due to pain with movement. Labs significant for sodium of 131, glucose of 189, BUN/Cr: 21/0.4, AST: 50, ALT : 51, Alk Phos: 108, WBC: 13.6 with 88.9% granulocytes, H/H: 12 and 36.1, Platelet: 213 Imaging of shoulders showing bilateral humeral fractures. Patient will be admitted to the general medicine floor for management of the followin. Bilateral humeral fractures 2. History of diabetes, hypothyroidism, hypertension, hyperlipidemia Plan: Admit to [facility] Pain control with Tylenol, Lidoderm patch, Dilaudid Ortho consulted. Will follow up on recommendations. PT and OT consulted as patient is unable to use her upper extremities. Continue home medications Accu-Cheks 3 times a day/daily at bedtime Consistent carbohydrate diet Code: Full code DVT prophylaxis: Heparin subcutaneous and ALPS
[2018-04-08 02:55] VITALS: BP 119/69
[2018-04-08 07:06] VITALS: BP 130/69
[2018-04-08 09:00] LABS: ABSOLUTE BASOPHIL COUNT 0 /CUMM (0.0-0.2); ABSOLUTE EOSINOPHIL COUNT 0 /CUMM (0.0-0.7); ABSOLUTE GRANULOCYTE CT 6.3 /CUMM (1.4-6.5); ABSOLUTE LYMPH COUNT 1.5 /CUMM (1.2-3.4); ABSOLUTE MONOCYTE COUNT 0.6 /CUMM (0.10-0.60); BASOPHIL % 0.4 % (0.0-2.0); EOSINOPHIL % 0.2 % (0-5); GRANULOCYTE % 75.3 % (42.2-75.2); HEMATOCRIT 32.2 % (37-47); MEAN CORPUSCULAR HGB 31.5 PG (27.0-31.0); MEAN CORPUSCULAR HGB CONC 33.8 G/DL (33.0-37.0); MEAN CORPUSCULAR VOLUME 93.4 FL (81.0-99.0); MEAN PLATELET VOLUME 10.3 FL (7.4-10.4); PLATELET COUNT 201 /CUMM (130-400); RBC DISTRIBUTION WIDTH 13.3 % (11.5-14.5); RED BLOOD CELL CT 3.45 /CUMM (4.20-5.40); WHITE BLOOD CELL COUNT 8.4 /CUMM (4.8-10.8)
--- NOTE | 2018-04-08 10:03 | Cons- Orthopedic ---
General Information and HPI Consulting Request Date of Consult: 04/08/18 Requested By: Harsh Ireland MD Reason for Consult: bilateral shoulder injury Source of Information: patient Exam Limitations: no limitations History of Present Illness: This patient is a 68-year-old woman who fell onto both outstretched upper extremities yesterday injuring both shoulders. She is right-hand dominant. She describes bilateral shoulder pain and stiffness. She was evaluated in the emergency room yesterday evening and was found to have fractures. She has a remote history of right shoulder adhesive capsulitis treated by a chiropractor but no other history of problems with the shoulders. She describes no other injuries today. No paresthesias. Allergies/Medications Allergies: Coded Allergies: Penicillins (Mild, RASH 12/22/17) ciprofloxacin (From CIPRO) (Mild, RASH 12/22/17) sulfamethoxazole (From BACTRIM) (Mild, NAUSEA, METAL TASTE 12/22/17) trimethoprim (From BACTRIM) (Mild, NAUSEA, METAL TASTE 12/22/17) Home Med List: Aspirin (Ecotrin*) 81 MG TABLET.DR 1 TAB PO DAILY HEART/BLOOD (Reported) Atorvastatin Calcium 40 MG TABLET 1 TAB PO DAILY HEART HEALTH (Reported) Calcium Carbonate/Vitamin D3 (Caltrate 600 + D Tablet) (Unknown Strength) TABLET (Unknown Dose) PO BID SUPPLEMENT (Reported) Clindamycin HCl (Cleocin HCl) 300 MG CAPSULE 1 CAP PO Q6H CELLULITIS Doxycycline Hyclate 100 MG TABLET 1 TAB PO BID lyme Folic Acid 0.4 MG TABLET 1 TAB PO DAILY SUPPLEMENT (Reported) Hydrocodone/Acetaminophen (Vicodin 5-300 MG Tablet) 5 MG-300 MG TABLET 1 TAB PO Q6P PRN PAIN Levothyroxine Sodium 75 MCG TABLET 1 TAB PO DAILY THYROID (Reported) Magnesium Oxide (Magnesium) 500 MG CAPSULE 2 CAP PO DAILY SUPPLEMENT ( Reported) Metformin HCl (Glucophage) 1,000 MG TABLET 1 TAB PO BID DM (Reported) Metoprolol Tartrate 50 MG TABLET 1 TAB PO QAM BP (Reported) Metoprolol Tartrate (Lopressor) 50 MG TABLET 0.5 TAB PO QPM BP (Reported) Multivit-Min/FA/Lycopen/Lutein (Centrum Silver Tablet) 0.4 MG-300 MCG-250 MCG TABLET 1 CAP PO DAILY SUPPLEMENT (Reported) [place]-3 Fatty Acids ([place]-3) (Unknown Strength) CAPSULE (Unknown Dose) PO DAILY SUPPLEMENT (Reported) [place]-3 Fatty Acids/Fish Oil (Fish Oil 1,000 MG Softgel) 300 MG-1,000 MG CAPSULE 1 CAP PO EOD SUPPLEMENT (Reported) Ubidecarenone (Coq-10) 100 MG CAPSULE 1 CAP PO DAILY SUPPLEMENT (Reported) Valsartan/Hydrochlorothiazide (Valsartan-Hctz 320-25 MG Tab) 320 MG-25 MG TABLET 1 TAB PO DAILY BP (Reported) Vit C/E/Zn/Coppr/Lutein/Zeaxan (Preservision Areds 2 Softgel) 250-200-40 CAPSULE 1 CAP PO BID SUPPLEMENT (Reported) Vitamin E Acetate (Vitamin E) 400 UNIT CAPSULE 1 CAP PO QPM SUPPLEMENT ( Reported) Past History Medical History Blood Transfusion Hx: No Neurological: NONE EENT: NONE Cardiovascular: hypertension, hyperlipidemia Respiratory: NONE Gastrointestinal: NONE Hepatic: NONE Renal: NONE Musculoskeletal: NONE Psychiatric: anxiety Endocrine: diabetes Blood Disorders: NONE Cancer(s): NONE 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 Home Smoking Status: Never Smoked ETOH Use: denies use Illicit Drug Use: denies illicit drug use Exam & Diagnostic Data Vital Signs and I&O Vital Signs Date Time Temp Pulse Resp B/P B/P Pulse O2 O2 Flow FiO2 Mean Ox Delivery Rate 04/08 1426 98.2 79 18 118/62 93 04/08 0918 130/69 04/08 0918 130/69 04/08 0800 97 Room Air 04/08 0706 98.0 83 20 130/69 93 Room Air 04/08 0255 98.0 82 20 119/69 96 Room Air 04/08 0050 98.6 86 18 134/80 97 Room Air 04/07 2201 98.1 84 18 143/81 98 Room Air 04/07 1908 97.4 79 18 119/70 96 Room Air 04/07 1645 97.9 82 18 153/63 98 Room Air 04/07 1642 98 Intake & Output 04/08 1600 04/08 0800 04/08 0000 04/07 1600 04/07 0800 04/07 0000 Intake Total 720 0 Output Total Balance 720 0 Intake, IV 600 Intake, Oral 120 0 Patient 228 lb 220 lb Weight Weight Bed scale Reported by Patient Measurement Method Physical Exam: Patient was found to be alert and appropriate. She was sitting up in bed accompanied by her in the room. She was fairly comfortable. She had both slings in place. Mild swelling of both shoulders. Tenderness over the anterolateral aspect. Normal gross sensation in her upper extremity. Normal pulses. No obvious deformities except for the mild swelling. Last 24 Hours of Labs: Laboratory Tests 04/08 04/08 0609 0600 Chemistry Sodium (137 - 145 mmol/L) 133 L Potassium (3.5 - 5.1 mmol/L) 4.0 Chloride (98 - 107 mmol/L) 97 L Carbon Dioxide (22 - 30 mmol/L) 27 Anion Gap (5 - 16) 8 BUN (7 - 17 mg/dL) 24 H Creatinine (0.5 - 1.0 mg/dL) 0.5 Estimated GFR (>60 ml/min) > 60 BUN/Creatinine Ratio (7 - 25 %) 48.0 H Hematology CBC w Diff NO MAN DIFF REQ WBC (4.8 - 10.8 /CUMM) 8.4 RBC (4.20 - 5.40 /CUMM) 3.45 L Hgb (12.0 - 16.0 G/DL) 10.9 L Hct (37 - 47 %) 32.2 L MCV (81.0 - 99.0 FL) 93.4 MCH (27.0 - 31.0 PG) 31.5 H MCHC (33.0 - 37.0 G/DL) 33.8 RDW (11.5 - 14.5 %) 13.3 Plt Count (130 - 400 /CUMM) 201 MPV (7.4 - 10.4 FL) 10.3 Gran % (42.2 - 75.2 %) 75.3 H Lymphocytes % (20.5 - 51.1 %) 17.5 L Monocytes % (1.7 - 9.3 %) 6.6 Eosinophils % (0 - 5 %) 0.2 Basophils % (0.0 - 2.0 %) 0.4 Absolute Granulocytes (1.4 - 6.5 /CUMM) 6.3 Absolute Lymphocytes (1.2 - 3.4 /CUMM) 1.5 Absolute Monocytes (0.10 - 0.60 /CUMM) 0.6 Absolute Eosinophils (0.0 - 0.7 /CUMM) 0 Absolute Basophils (0.0 - 0.2 /CUMM) 0 04/07 2220 Chemistry Sodium (137 - 145 mmol/L) 131 L Potassium (3.5 - 5.1 mmol/L) 4.2 Chloride (98 - 107 mmol/L) 95 L Carbon Dioxide (22 - 30 mmol/L) 25 Anion Gap (5 - 16) 11 BUN (7 - 17 mg/dL) 21 H Creatinine (0.5 - 1.0 mg/dL) 0.4 L Estimated GFR (>60 ml/min) > 60 BUN/Creatinine Ratio (7 - 25 %) 52.5 H Glucose (65 - 99 mg/dL) 189 H Calcium (8.4 - 10.2 mg/dL) 9.2 Total Bilirubin (0.2 - 1.3 mg/dL) 0.9 AST (14 - 36 U/L) 50 H ALT (9 - 52 U/L) 51 Alkaline Phosphatase (<127 U/L) 108 Troponin I (< 0.11 ng/ml) < 0.01 Total Protein (6.3 - 8.2 g/dL) 7.4 Albumin (3.5 - 5.0 g/dL) 4.2 Globulin (1.9 - 4.2 gm/dL) 3.2 Albumin/Globulin Ratio (1.1 - 2.2 %) 1.3 Hematology CBC w Diff NO MAN DIFF REQ WBC (4.8 - 10.8 /CUMM) 13.6 H RBC (4.20 - 5.40 /CUMM) 3.89 L Hgb (12.0 - 16.0 G/DL) 12.0 Hct (37 - 47 %) 36.1 L MCV (81.0 - 99.0 FL) 92.9 MCH (27.0 - 31.0 PG) 30.9 MCHC (33.0 - 37.0 G/DL) 33.3 RDW (11.5 - 14.5 %) 13.0 Plt Count (130 - 400 /CUMM) 213 MPV (7.4 - 10.4 FL) 9.3 Gran % (42.2 - 75.2 %) 88.9 H Lymphocytes % (20.5 - 51.1 %) 7.4 L Monocytes % (1.7 - 9.3 %) 3.5 Eosinophils % (0 - 5 %) 0 Basophils % (0.0 - 2.0 %) 0.2 Absolute Granulocytes (1.4 - 6.5 /CUMM) 12.1 H Absolute Lymphocytes (1.2 - 3.4 /CUMM) 1.0 L Absolute Monocytes (0.10 - 0.60 /CUMM) 0.5 Absolute Eosinophils (0.0 - 0.7 /CUMM) 0 Absolute Basophils (0.0 - 0.2 /CUMM) 0 Imaging Results: I reviewed the x-rays yesterday evening. These included multiple views of both shoulders. X-rays revealed greater tuberosity fractures which were minimally displaced. Left slightly more displaced than the right. No evidence of dislocation on Y view. Assessment/Plan Assessment/Plan Bilateral greater tuberosity fractures-due to the maintained alignment, these fractures can be treated nonsurgically. She will continue with sling wear. Ice and appropriate analgesics. Follow-up x-ray in 1 week to confirm maintained alignment. This can be done as an outpatient. If patient goes to rehabilitation facility then x-rays can be done at the rehabilitation facility and sent to our office for my review. The ultimate plan would be starting range of motion exercises at around 3 or 4 weeks as long as he x-rays show healing and maintained alignment of the fractures. Consult Acknowledgment - Thank you for your consult request. Attending MD Review Statement Attending Statement Attending Statement: examined this patient, discussed with family
[2018-04-08 14:26] VITALS: BP 118/62
[2018-04-08 21:11] VITALS: BP 110/72
--- NOTE | 2018-04-08 21:28 | PN- Att Addend ---
Attending Addendum Attending Brief Note 68F PMH HTN, T2DM presenting with mechanical fall and bilateral humerus fractures. Patient was walking on her treadmill, lost her footing, and fell forward, with immediate bilateral arm pain. Fractures seen on x-rays in ER, placed in sling. Seen by orthopedics, no acute surgical intervention. Patient reports that her pain is controlled. She has no complaints. She did not hit her head or lose consciousness. 13-point ROS negative AFVSS NAD NCAT MMM Supple RRR CTAB Soft, NTND No c/c/e Peripheral pulses intact A&Ox3, full sensation of fingers and arms, full ROM of fingers and hands 1. Fall, initial 2. Bilateral fractures of the greater tuberosity of the humerus Plan - Continue on general medicine - Continue current pain medications - Continue Xanax for anxiety - Continue home medications - PT and orthopedic consults - DVT PPx
[2018-04-09 06:25] VITALS: BP 106/80
[2018-04-09 08:22] LABS: ABSOLUTE BASOPHIL COUNT 0 /CUMM (0.0-0.2); ABSOLUTE EOSINOPHIL COUNT 0.2 /CUMM (0.0-0.7); ABSOLUTE GRANULOCYTE CT 3.9 /CUMM (1.4-6.5); ABSOLUTE LYMPH COUNT 1.7 /CUMM (1.2-3.4); ABSOLUTE MONOCYTE COUNT 0.5 /CUMM (0.10-0.60); BASOPHIL % 0.6 % (0.0-2.0); EOSINOPHIL % 2.8 % (0-5); GRANULOCYTE % 61.7 % (42.2-75.2); HEMATOCRIT 31.7 % (37-47); MEAN CORPUSCULAR HGB 31.3 PG (27.0-31.0); MEAN CORPUSCULAR HGB CONC 33.5 G/DL (33.0-37.0); MEAN CORPUSCULAR VOLUME 93.3 FL (81.0-99.0); PLATELET COUNT 176 /CUMM (130-400); RBC DISTRIBUTION WIDTH 13.2 % (11.5-14.5); WHITE BLOOD CELL COUNT 6.3 /CUMM (4.8-10.8)
--- NOTE | 2018-04-09 14:14 | PN- Housestaff ---
Casa GONZALES,Imani 04/09/18 1406: Subjective Follow-up For: FALL and humeral fracture Subjective: Saw pt at bedside this AM. She had no acute complaints or overnight events. Bilat arms still in slings. We discussed importance of life-alert or similar system if future accidents were to happen. She states her pain is well controlled and she is doing the PT/OT exercises in bed. Review of Systems Constitutional: Denies: chills, fever, malaise. EENTM: Reports: no symptoms. Cardiovascular: Reports: no symptoms. Respiratory: Reports: no symptoms. Gastrointestinal: Reports: no symptoms. Genitourinary: Reports: no symptoms. Musculoskeletal: Reports: joint pain, muscle pain, muscle stiffness. Skin: Reports: no symptoms. Objective Last 24 Hrs of Vital Signs/I&O Vital Signs Date Time Temp Pulse Resp B/P B/P Pulse O2 O2 Flow FiO2 Mean Ox Delivery Rate 04/09 0901 106/80 04/09 0900 106/80 04/09 0800 97 Room Air 04/09 0625 99.8 68 20 106/80 95 04/08 2143 96 110/72 04/08 2111 98.3 96 17 110/72 94 Room Air 04/08 1426 98.2 79 18 118/62 93 Physical Exam General Appearance: Alert, Oriented X3, Cooperative, No Acute Distress Skin: No Significant Lesion HEENT: Atraumatic, PERRLA, EOMI Neck: Supple Cardiovascular: Regular Rate, Normal S1, Normal S2, No Murmurs Lungs: Normal Air Movement Abdomen: Soft, No Tenderness Extremities: No Edema, Normal Pulses, normal pulses at wrist or RUE and she has good vp customer development strength. Sensation intact Current Medications: Current Medications Sig/Veda Start time Last Medication Dose Route Stop Time Status Admin Acetaminophen 650 MG Q6P PRN 04/08 315 AC PO Acetaminophen 1,000 MG Q6P PRN 04/08 0315 DC 04/09 IV 0519 Alprazolam 0 .STK-MED ONE 04/09 0035 DC PO Alprazolam 0 .STK-MED ONE 04/08 2303 DC PO Alprazolam 0.5 MG ONCE ONE 04/08 1945 DC 04/09 PO 04/08 Atorvastatin Calcium 40 MG DAILY 04/08 900 AC 04/09 PO 0900 Docusate Sodium 100 MG DAILY NEEDED PRN 04/08 2145 AC 04/09 PO 0901 Heparin Sodium 5,000 UNIT Q8 04/08 0600 AC 04/09 (Porcine) SC 0514 Hydromorphone HCl 0.5 MG Q4P PRN 04/08 0315 DC 04/09 IV 0901 Insulin Aspart 0 AT BEDTIME 04/08 2100 AC 04/08 SC 2142 Insulin Aspart 0 TIDAC 04/08 08 AC 04/09 SC 1227 Levothyroxine Sodium 0.075 MG DAILY AC 04/08 0700 AC 04/09 PO 0514 Lidocaine 1 PAT Q24H 04/08 031 AC 04/09 EXT 0514 Losartan Potassium 50 MG DAILY 04/08 0900 AC 04/09 PO 0900 Metoprolol Tartrate 25 MG QPM 04/08 2100 DC PO Metoprolol Tartrate 25 MG QPM 04/08 2100 AC 04/08 PO 2143 Metoprolol Tartrate 50 MG QAM 04/08 09 AC 04/09 PO 0901 Ondansetron HCl 4 MG ONCE ONE 04/08 1945 DC 04/08 PO 04/08 194 194 Oxycodone/ 1 TAB Q4P PRN 04/09 1200 AC Acetaminophen PO Oxycodone/ 2 TAB Q4P PRN 04/09 1200 AC 04/09 Acetaminophen PO 1227 Polyethylene Glycol 17 GM DAILY PRN 04/08 2200 AC 04/09 PO 0901 Last 24 Hrs of Lab/Simeon Results Last 24 Hrs of Labs/Mics: Laboratory Tests 04/09/18 0657: Anion Gap 8, Estimated GFR > 60, BUN/Creatinine Ratio 42.5 H, CBC w Diff NO MAN DIFF REQ, RBC 3.40 L, MCV 93.3, MCH 31.3 H, MCHC 33.5, RDW 13.2, MPV 10.0, Gran % 61.7, Lymphocytes % 27.2, Monocytes % 7.7, Eosinophils % 2.8, Basophils % 0.6, Absolute Granulocytes 3.9, Absolute Lymphocytes 1.7, Absolute Monocytes 0.5 , Absolute Eosinophils 0.2, Absolute Basophils 0 Assessment/Plan Assessment: The patient is a 68-year-old female with past medical history significant for diabetes mellitus, hypertension, who came to ED for CC bilat UE pain s/p fall from her treadmil and was found to have bilateral non-displaced humeral fracture l. She was seen by orthopedics and was deemed non-operable. She is currently in bilat UE sling, with pain under control and evaluated for safe disposition. PLAN: Bilateral humeral fracture: * Appreciate ortho recs * Con't curret pain reg * Con't usage of slings * Con't PT * Con't OT Hypertension * Con't Lopressor in AM and PM per current reg Hypothyroidism: * Con't Levothyroxine .075mg Diabetes mellitus: * RISS * FS * CC diet FC Chem ppx cc Problem List: 1. HTN (hypertension) 2. Diabetes mellitus Pain Ratin Pain Location: none Pain Goal: Remain pain free Pain Plan: current reg Tomorrow's Labs & Rationales: cbc bep Anum Pruitt MD 04/09/18 1720: Attending MD Review Statement Attending Statement Attending MD Statement: examined this patient, discuss w/resident/PA/VACUUM PAN TENDER, agreed w/resident/PA/VACUUM PAN TENDER, reviewed EMR data (avail) Attending Assessment/Plan: 68F PMH HTN, T2DM presenting with mechanical fall and bilateral humerus fractures. Patient was walking on her treadmill, lost her footing, and fell forward, with immediate bilateral arm pain. Fractures seen on x-rays in ER, placed in sling. Seen by orthopedics, no acute surgical intervention. Patient reports that her pain is controlled. She has no complaints. She did not hit her head or lose consciousness. Patient feels well today. Her pain is well controlled. She is neurovascularly intact in her upper extremities. She would like a more secure arm sling to keep her arms in place. She has not had a BM. 1. Fall, initial 2. Bilateral fractures of the greater tuberosity of the humerus Plan - Continue on general medicine - Start Senna and Colace to prevent opioid induced constipation - Continue current pain medications - Continue Xanax for anxiety - Continue home medications - PT and orthopedic consults - DVT PPx - Anticipated discharge to [facility] tomorrow
[2018-04-09 14:57] VITALS: BP 145/93
[2018-04-09 22:54] VITALS: BP 125/72
[2018-04-10 07:11] VITALS: BP 137/71
[2018-04-10 08:58] LABS: ABSOLUTE BASOPHIL COUNT 0 /CUMM (0.0-0.2); ABSOLUTE EOSINOPHIL COUNT 0.3 /CUMM (0.0-0.7); ABSOLUTE GRANULOCYTE CT 4.3 /CUMM (1.4-6.5); ABSOLUTE LYMPH COUNT 3.9 /CUMM (1.2-3.4); ABSOLUTE MONOCYTE COUNT 0.5 /CUMM (0.10-0.60); BASOPHIL % 0.5 % (0.0-2.0); EOSINOPHIL % 3.2 % (0-5); GRANULOCYTE % 47.9 % (42.2-75.2); HEMATOCRIT 35.9 % (37-47); MEAN CORPUSCULAR HGB 31.2 PG (27.0-31.0); MEAN CORPUSCULAR HGB CONC 33.1 G/DL (33.0-37.0); MEAN CORPUSCULAR VOLUME 94.3 FL (81.0-99.0); MEAN PLATELET VOLUME 10.4 FL (7.4-10.4); RBC DISTRIBUTION WIDTH 13.6 % (11.5-14.5); RED BLOOD CELL CT 3.81 /CUMM (4.20-5.40); WHITE BLOOD CELL COUNT 9.1 /CUMM (4.8-10.8)
[2018-04-10 10:04] LABS: PLATELET COUNT 183 /CUMM (130-400)
--- NOTE | 2018-04-10 12:54 | PN- Housestaff ---
Nima Parks 04/10/18 1254: Subjective Follow-up For: Bilateral humeral fracture Hypertension Diabetes mellitus Subjective: I visited the patient this morning, she was lying back in bed. She was alert and oriented x3, in no acute distress. She did not report any major complaints overnight. She believes that her pain is better today. She denies any numbness, tingling, worsening pain in her upper extremities. Review of Systems Constitutional: Reports: see HPI. Objective Last 24 Hrs of Vital Signs/I&O Vital Signs Date Time Temp Pulse Resp B/P B/P Pulse O2 O2 Flow FiO2 Mean Ox Delivery Rate 04/10 1713 97.6 80 18 126/68 04/10 1600 97.6 80 18 126/68 94 Room Air 04/10 1232 Room Air 04/10 1206 Room Air 04/10 0929 86 137/71 04/10 0929 86 137/71 04/10 0711 97.8 86 18 137/71 96 04/09 2254 98.1 85 18 125/72 94 Room Air 04/09 2122 85 125/72 Intake & Output 04/10 1600 04/10 0800 04/10 0000 Intake Total 740 240 Output Total Balance 740 240 Intake, Oral 740 240 Number 0 Bowel Movements Physical Exam General Appearance: Alert, Oriented X3, Cooperative, No Acute Distress Skin: No Rashes Cardiovascular: Regular Rate, Normal S1, Normal S2 Lungs: Clear to Auscultation, Normal Air Movement Extremities: No Clubbing, No Cyanosis, No Edema, Normal Pulses, No Tenderness/ Swelling, Bilateral humeral fracture and limited ROM Vascular: Normal Pulses, Pulses Symmetrical Assessment/Plan Assessment: The patient is a 68-year-old female with past medical history significant for diabetes mellitus, hypertension, who came to ED for CC bilat UE pain s/p fall from her treadmil and was found to have bilateral non-displaced humeral fracture l. She was seen by orthopedics and was deemed non-operable. She is currently in bilat UE sling, with pain under control and evaluated for safe disposition. She will be discharged to [facility]. Bilateral humeral fracture: Plan: Appreciate ortho recs, Con't curret pain reg, Con't usage of slings, Con't PT, Con't OT Hypertension: Plan: Con't Lopressor in AM and PM per current reg Hypothyroidism: Plan: Con't Levothyroxine .075mg Diabetes mellitus: Plan: RISS, FS, CC diet Problem List: 1. Humeral fracture 2. HTN (hypertension) 3. Diabetes mellitus Pain Ratin Pain Location: bilateral humeral Pain Goal: Pain 4 or less Pain Plan: Lidocaine patch Tomorrow's Labs & Rationales: Not applicable Kory oCronel MD 04/10/18 2135: Attending MD Review Statement Attending Statement Attending MD Statement: examined this patient, discuss w/resident/PA/SUPERVISOR TELEPHONE ANSWERING SERVICE, agreed w/resident/PA/SUPERVISOR TELEPHONE ANSWERING SERVICE, reviewed EMR data (avail), discussed with nursing, amended to note Attending Assessment/Plan: The patient was seen and discussed with house staff. Agree with the plan of care as outlined. OK to discharge today to [facility] at [facility].
[2018-04-10 16:00] VITALS: BP 126/68
--- NOTE | 2018-04-10 16:30 | Patient Discharge Instructions ---
Discharge Instructions General Discharge Information You were seen/treated for: Bilateral humeral fracture You had these procedures: Sling placed Special Instructions: 1. Follow up with your pcp within 1 week of discharge 2. Follow up with the orthopedic doctor within 3 weeks of discharge 3. Have repeat X rays of the right and left shoulder in 1 week Activity Full Activity/No Limits: No Activity Self Limited: Yes Acute Coronary Syndrome Inclusion Criteria At DC or during hospital stay patient has or had the following: ACS DIAGNOSIS No Discharge Core Measures Meds if any: Prescribed or Continued at Discharge Meds if any: NOT Prescribed or Continued at Discharge Congestive Heart Failure Inclusion Criteria At DC or during hospital stay patient has or had the following: CHF DIAGNOSIS No Discharge Core Measures Meds if any: Prescribed or Continued at Discharge Meds if any: NOT Prescribed or Continued at Discharge Cerebrovascular accident Inclusion Criteria At DC or during hospital stay patient has or had the following: CVA/TIA Diagnosis No Discharge Core Measures Meds if any: Prescribed or Continued at Discharge Meds if any: NOT Prescribed or Continued at Discharge Venous thromboembolism Inclusion Criteria VTE Diagnosis No VTE Type NONE VTE Confirmed by (Test) NONE Discharge Core Measures - Per Current guidelines, there needs to be overlap - treatment for the first 5 days of Warfarin therapy. - If discharged on Warfarin prior to 5 days of - overlap therapy, the patient will need to be - assessed for post discharge needs including - *Post discharge parental anticoagulation - *Warfarin and/or parental anticoagulation education - *Follow up date to check INR post discharge At least 5 days overlap therapy as Inpatient No Meds if any: Prescribed or Continued at Discharge Note: Overlap Therapy is Warfarin and Anticoagulant Meds if any: NOT Prescribed or Continued at Discharge
--- NOTE | 2018-04-10 17:05 | Discharge Summary ---
See Addendum Visit Information Visit Dates Admission Date: 04/08/18 Discharge Date: 04/10/18 Hospital Course Course Attending Physician: Kory Coronel MD Primary Care Physician: Hazel GONZALES,David Zayas Consulting Request: Consulting Specialty: Orthopedics Consulting Physician: Dr. Bolton Reason for Consult: Bilateral humeral fractures Hospital Course: Patient is a 68-year-old female with past medical history of diabetes,? TIA, hypothyroidism, hypertension, hyperlipidemia, right lower extremity cellulitis presenting this admission after sustaining a mechanical fall on outstretched hands. In the ED patient had x-rays which showed bilateral humeral fractures. Ortho was consulted and patient was splinted. Patient received Tylenol with codeine, Vicodin, Toradol, 1 L normal saline, morphine with some relief. On admission: Vital signs stable. On physical exam patient resting comfortably in bed with sling in place, neuro exam performed except limited due to pain with movement. Labs significant for sodium of 131, glucose of 189, BUN/Cr: 21/0.4, AST: 50, ALT : 51, Alk Phos: 108, WBC: 13.6 with 88.9% granulocytes, H/H: 12 and 36.1, Platelet: 213 Imaging of shoulders showing bilateral humeral fractures. Patient was admitted to the general medicine floor for management of the followin. Bilateral humeral fractures Patient presented after mechanical fall. Imaging showed bilateral nondisplaced humeral fractures. Patient was evaluated by the orthopedist and managed conservatively with sling, physical and occupational therapy and pain control. - patient will be sent to [facility] at [facility] - patient should follow up with Dr. France (ortho) and have repeat x-ray in 1 week 2. History of diabetes, hypothyroidism, hypertension, hyperlipidemia Continue home medications Allergies: Coded Allergies: Penicillins (Mild, RASH 12/22/17) ciprofloxacin (From CIPRO) (Mild, RASH 12/22/17) sulfamethoxazole (From BACTRIM) (Mild, NAUSEA, METAL TASTE 12/22/17) trimethoprim (From BACTRIM) (Mild, NAUSEA, METAL TASTE 12/22/17) Pertinent Lab Results: SERVICE DATE: 04/07/18-170 EXAM TYPE: RAD - XRY-SHOULDER COMPLETE-LEFT EXAMINATION: XR SHOULDER, LEFT CLINICAL INFORMATION: Status post fall. Left shoulder pain. COMPARISON: None TECHNIQUE: 3 views of the left shoulder were obtained. FINDINGS: The evaluation is somewhat limited by patient positioning. Fracture through the greater tuberosity is suspected with evolution of small fragment on the lateral aspect. Acromioclavicular and glenohumeral joint alignments are normal. Degenerative changes are noted at the acromioclavicular joints. Visualized left hemithorax is unremarkable. IMPRESSION: Limited evaluation by patient positioning Suspected fracture through the left humeral greater tuberosity. SERVICE DATE: 04/07/18 EXAM TYPE: RAD - XRY-SHOULDER COMPLETE-RIGHT EXAMINATION: XR SHOULDER, RIGHT CLINICAL INFORMATION: Status post fall. Pain. COMPARISON: Left shoulder radiographs of 04/07/2018. TECHNIQUE: AP external rotation, Grashey, scapular Y, and axillary views of the right shoulder. FINDINGS: The appearance of the greater tuberosity is somewhat similar to that seen on the left side and nondisplaced fracture through the greater tuberosity cannot be completely excluded. Correlate with history of prior trauma in this region. And acromioclavicular joint alignments are normal. IMPRESSION: Question acute nondisplaced fracture versus chronic deformity through the left greater tuberosity. Recommend clinical correlation. SERVICE DATE: 04/07/18 EXAM TYPE: RAD - XRY-CHEST XRAY, TWO VIEWS EXAMINATION: XR CHEST CLINICAL INFORMATION: Fall with chest wall pain COMPARISON: 10/21/2010. Shoulder radiographs from today. TECHNIQUE: 2 views of the chest were obtained. FINDINGS: The lateral views are suboptimal. Lung volumes are low. No consolidation, edema, or effusion. No pneumothorax. The cardiomediastinal silhouette is unchanged from previous. The osseous structures are not well evaluated on this study. Mild irregularity of the right humeral neck, consistent with a nondisplaced fracture. IMPRESSION: Limited study. Low lung volumes with no acute pulmonary finding. The osseous structures are not well evaluated on this study. Nondisplaced right humeral neck fracture again noted. Disposition Summary Disposition Principal Diagnosis: Bilateral Humeral Fractures s/p Mechanical Fall Additional Diagnosis: H/O Diabetes, Hyperlipidemia, Hypothyroidism, Hypertension Discharge Disposition: SNF Discharge Instructions General Discharge Information Code Status: Full Code Patient's Diet: Diabetic Patient's Activity: Self-limited, continue wearing sling until follow up with ortho Follow-Up Instructions/Appts: 1. Repeat xrays of the arms in 1 week 2. Follow up with Dr. Bolton Medications at Discharge Discharge Medications: Stop taking the following medications: Doxycycline Hyclate (Doxycycline Hyclate) 100 MG TABLET ORAL TWICE DAILY Qty = 42 Clindamycin HCl (Cleocin HCl) 300 MG CAPSULE ORAL Q6H Qty = 40 Continue taking these medications: Metformin HCl (Glucophage) 1,000 MG TABLET 1 Tablet ORAL TWICE DAILY Comments: NOT GIVEN IN HOSPITAL Atorvastatin Calcium (Atorvastatin Calcium) 40 MG TABLET 1 Tablet ORAL DAILY Comments: Last Taken:04/10/18 Time:9:29 AM Valsartan/Hydrochlorothiazide (Valsartan-Hctz 320-25 MG Tab) 320 MG-25 MG TABLET 1 Tablet ORAL DAILY Qty = 90 Metoprolol Tartrate (Metoprolol Tartrate) 50 MG TABLET 1 Tablet ORAL Every Morning Qty = 135 Comments: Last Taken:04/09/18 Time:9:22 AM Metoprolol Tartrate (Lopressor) 50 MG TABLET 0.5 Tablet ORAL Every night Levothyroxine Sodium (Levothyroxine Sodium) 75 MCG TABLET 1 Tablet ORAL DAILY Qty = 90 Comments: Last Taken:04/10/18 Time:5:55 AM Ubidecarenone (Coq-10) 100 MG CAPSULE 1 Capsule ORAL DAILY Vitamin E Acetate (Vitamin E) 400 UNIT CAPSULE 1 Capsule ORAL Every night Folic Acid (Folic Acid) 0.4 MG TABLET 1 Tablet ORAL DAILY Comments: NOT GIVEN IN HOSPITAL Magnesium Oxide (Magnesium) 500 MG CAPSULE 2 Capsule ORAL DAILY Comments: NOT GIVEN IN HOSPITAL Multivit-Min/FA/Lycopen/Lutein (Centrum Silver Tablet) 0.4 MG-300 MCG-250 MCG TABLET 1 Capsule ORAL DAILY Vit C/E/Zn/Coppr/Lutein/Zeaxan (Preservision Areds 2 Softgel) 250-200-40 CAPSULE 1 Capsule ORAL TWICE DAILY Aspirin (Ecotrin*) 81 MG TABLET. 1 Tablet ORAL DAILY Comments: NO GIVEN IN HOSPITAL Iroquois-3 Fatty Acids/Fish Oil (Fish Oil 1,000 MG Softgel) 300 MG-1,000 MG CAPSULE 1 Capsule ORAL Every other day Calcium Carbonate/Vitamin D3 (Caltrate 600 + D Tablet) (Unknown Strength) TABLET Unknown Dose ORAL TWICE DAILY Comments: NOT GIVEN IN HOSPITAL Hydrocodone/Acetaminophen (Vicodin 5-300 MG Tablet) 5 MG-300 MG TABLET 1 Tablet ORAL EVERY SIX HOURS NEEDED as needed for PAIN Qty = 20 Comments: NOT GIVEN IN HOSPITAL Copies To: Che GONZALES,Veronica Oliva MD,David Zayas Attending MD Review Statement Documenting Attending: Kory Coronel MD Other Findings: The patient was seen and discussed with house staff. OK to discharge today to [facility] ([facility]) for rehab prior to going home.
[2018-04-10 17:13] VITALS: BP 126/68
== END 2018-04-10 18:42 | DRG 563 ==
LOC: ERH 16:36 → 2NB 04-08 00:05 → ERHI 04-08 00:05 → ENRESERV 04-08 00:33 → 2NB 04-08 02:12 → ENPENDDIS 04-10 17:49 → 2NB 04-10 18:42
PROVIDERS: Emergency Medicine; Student in an Organized Health Care Education/Training Program
DX: S42.255A Nondisplaced fracture of greater tuberosity of left humerus, initial encounter for closed fracture (principal); S42.254A Nondisplaced fracture of greater tuberosity of right humerus, initial encounter for closed fracture; Z68.41 Body mass index [BMI] 40.0-44.9, adult; I10 Essential (primary) hypertension; E78.5 Hyperlipidemia, unspecified; E11.9 Type 2 diabetes mellitus without complications; Z79.84 Long term (current) use of oral hypoglycemic drugs; F41.9 Anxiety disorder, unspecified; E03.9 Hypothyroidism, unspecified; Z86.73 Personal history of transient ischemic attack (TIA), and cerebral infarction without residual deficits; Z88.1 Allergy status to other antibiotic agents; Z88.0 Allergy status to penicillin; Z88.2 Allergy status to sulfonamides; Z79.82 Long term (current) use of aspirin; W17.89XA Other fall from one level to another, initial encounter; Y93.A1 Activity, exercise machines primarily for cardiorespiratory conditioning; Y92.009 Unspecified place in unspecified non-institutional (private) residence as the place of occurrence of the external cause; I83.93 Asymptomatic varicose veins of bilateral lower extremities; E66.01 Morbid (severe) obesity due to excess calories
CPT/HCPCS: 2NBP; 2NBSP; 36592; 71046; 73030-LT; 73030-RT; 82436; 93005; 93010; 96374; 97162-GP; 97165-GO; J0131; J1644; J1885; J3101